=== PATIENT | female | born 1950 | race Caucasian/White ===

== ENCOUNTER → 2017-12-12 00:45 | Outpatient (CLI) | payer BC, SELFPAY ==
--- NOTE | 2017-12-12 08:31 | DI.REPORT_ITS ---
SYMPTOMS/DIAGNOSIS: SCREENING, Z12.31 MAMMOGRAMS: Mammograms were interpreted according to the usual protocol including computer analysis with CAD system, tomosynthesis and C view imaging. Comparison is with prior mammograms. No masses or microcalcifications are seen. There is nothing to suggest malignancy. IMPRESSION: Negative mammogram. Routine screening is recommended. Category 1, breast density B. MQSA ASSESSMENT OF FINDINGS: Negative. Category 1. Patient will receive a letter notifying them of these results. BI-RADS category B. There are scattered areas of fibroglandular density.
== END ==
PROVIDERS: PCP Family Medicine; Visit Provider Family Medicine
DX: Z12.31 Encounter for screening mammogram for malignant neoplasm of breast (principal)
CPT/HCPCS: 77063; 77067

== ENCOUNTER 2018-03-07 15:53 | Outpatient (CLI) | payer BC, MEDICARE, SELFPAY ==
[2018-03-07 16:28] LABS: Abs Immature Grans 0.02 k/cumm (0.0-0.09); Absolute Basophil Count 0.05 k/cumm (0.0-0.2); Absolute Eosinophil Count 0.21 k/cumm (0.0-0.7); Absolute Lymphocyte Count 1.63 k/cumm (1.2-3.4); Absolute Monocyte Count 0.82 k/cumm (0.11-0.7); Absolute Neutrophil Count 4.47 k/cumm (1.2-6.7); Basophils % 0.7; Eosinophils % 2.9; HCT 38.6 % (36.0-46.0); HGB 12.6 g/dL (12.0-15.5); Immature Grans % 0.3; Lymphocytes % 22.6; Mean Corp. HGB Concentration 32.6 g/dL (32.0-36.0); Mean Corpuscular Hemoglobin 28.1 pg (27.0-33.0); Mean Corpuscular Volume 86.2 fL (80-95); Mean Platelet Volume 10.7 fL (8.0-11.0); Monocytes % 11.4; Neutrophils % 62.1; Platelet Count 313 x1000/uL (130-400); RBC 4.48 m/cumm (4.00-5.20); RBC Distribution Width 14.3 % (11.7-14.6)
[2018-03-07 16:40] LABS: Bilirubin Negative (Negative); Blood Negative (Negative); Clarity Clear; Glucose Negative (Negative); Ketones Negative (Negative); Leukocyte Esterase Negative (Negative); Nitrite Negative (Negative); Specific Gravity 1.015 (1.005-1.025); Urobilinogen 0.2 EU/dL (Up TO 0.2)
[2018-03-07 17:42] LABS: ESR 54 MM/HR (0-30)
[2018-03-07 17:53] LABS: ALT 38 U/L (12-78); AST 33 U/L (15-37); Albumin 3.4 g/dL (3.4-5.0); Alkaline Phosphatase 137 U/L (46-116); Anion Gap 11.4 mmol/L (3-11); BUN 22 mg/dL (7-18); Bilirubin, Total 0.3 mg/dL (0.2-1.0); C-Reactive Protein 4.81 mg/dL (0.0-0.3); CO2 26.6 mmol/L (21.0-32.0); CREATININE 0.83 mg/dL (0.55-1.02); Calcium 8.9 mg/dL (8.5-10.1); Chloride 102 mmol/L (98-107); Glucose 99 mg/dL (70-100); Potassium 4.3 mmol/L (3.5-5.1); Sodium 140 mmol/L (136-145); Total Protein 6.9 g/dL (6.4-8.2); Uric Acid 4.6 mg/dL (2.6-6.0)
[2018-03-09 10:37] LABS: Cyclic Citrullinated Peptide <2.5 U/mL (<5.0)
[2018-03-09 11:20] LABS: Rheumatoid Factor 10 IU/mL (<12.5)
[2018-03-09 12:31] LABS: Lyme Ab w Rflx to Lyme Confirm Negative
[2018-03-09 13:44] LABS: ANA Interpretation Negative (NEGAT)
== END 2018-03-07 16:13 ==
PROVIDERS: PCP Family Medicine; Visit Provider Family Medicine
DX: M25.50 Pain in unspecified joint (principal); M13.0 Polyarthritis, unspecified
CPT/HCPCS: 36415; 80053; 85652; 86200; 81003; 84550; 85025; 86038; 86140; 86431; 86618

== ENCOUNTER 2018-03-08 01:10 | Outpatient (CLI) | payer BC, MEDICARE, SELFPAY ==
[2018-03-08] MEDS: Omnipaque 350 MG/ML 100 ML BTL IJ (15:13)
--- NOTE | 2018-03-08 15:14 | DI.CT_ITS ---
SYMPTOMS/DIAGNOSIS: DYSPNEA, R06.00, COUGH, R05, PLEURODYNIA, R07.81, ? PE PE CHEST CT: CT angiography was performed with multi slice acquisition and multi planar and 3D reconstruction. The study was conducted according to the usual protocol with an intravenous administration of 100 cc's of Omnipaque 350. Suboptimal opacification of the pulmonary arteries is demonstrated. There is no evidence of gross central pulmonary embolic disease. There is no evidence of a pulmonary infiltrate or pleural effusion. The heart is not enlarged. There is no evidence of an aortic aneurysm. SUMMARY: Technically suboptimal examination revealing no evidence of gross central pulmonary embolic disease.
== END 2018-03-08 01:30 ==
PROVIDERS: PCP Family Medicine; Visit Provider Family Medicine
DX: R06.00 Dyspnea, unspecified (principal); R05 Cough; R07.81 Pleurodynia
CPT/HCPCS: 71275; J3490

== ENCOUNTER 2018-03-27 00:19 | Outpatient (CLI) | payer BC, MEDICARE, SELFPAY ==
--- NOTE | 2018-03-27 08:30 | ETT_ITS ---
*[facility]* *[facility]* [address] [place] [address] Stress Electrocardiography Rodger protocol Date of study: 03/27/2018 *PATIENT PRESENTATION* Height: 177.8cm (70in) Blood Pressure: Weight: 90kg (198lb) BSA: 2.13m^2 Ordering physician: Gwendolyn Diaz Impressions: Normal study after maximal exercise. Summary: 1. Stress ECG conclusions: The stress ECG is negative. Power treadmill score: 6. This score predicts a low risk of cardiac events. 2. Stress: The target heart rate was achieved. The heart rate response to stress is normal. There is a normal resting blood pressure with an appropriate response to stress. The patient experienced no chest pain during stress. Exercise capacity is normal for age. Indication: R07.9. History: REASON FOR TESTING: RECENT CHEST PAIN WHEN LAYING DOWN SEVERAL MONTHS AGE. PAIN RECURRED APPROX 3 WEEKS AGO, WITH ASSOCIATED LIGTHEADEDNESS. RESOLVED SEVERAL HOURS LATER WITH REST. PMH: VIT D DEFICIENCY, VAGINAL ATROPHY, SYNCOPE, RIGHT SHOULDER PAIN, PSVT, CONCUSSION, CERVICAL NECK PAIN, ALLERGIC RHINITIS, ADENOMATOUS POLYP OF COLON, POLYARTHRITIS OF HAND, BURSITIS OF HIP, NASAL POLYPS, GERD. FAMILY HX: FATHER- CVA,KS, HYPERTENSION, HYPERLIPIDEMIA. BROTHER- CAD WITH 2 STENTS. SMOKING: NEVER SMOKER. EXCERCISE: HUNTS, BUT NO REGULAR EXCERCISE. Risk factors: Family history of coronary artery disease. Dyslipidemia. Cholesterol: 261mg/dl. HDL: 74mg/dl. LDL: 163mg/dl. Triglycerides: 137mg/dl. ALLERGIES: ETHINYL ESTRADIOL, LEVONORGRESTREL, ESTROGENS, CONJUGATED. MEDICATIONS: OMEPRAZOLE 40 MG DAILY, MULTIVITAMIN 1 DAILY, CHOLECALCIFEROL 2000 UNITS DAILY, ASPIRIN 81 MG DAILY, GLUCOSAMIN/CHONDROITIN 3 DAILY. Protocol: Rodger protocol. Baseline ECG: LAST EKG 03/07/18- SINUS RHYTHM, HR 66. TODAY'S EKG- SINUS RHYTHM, HR 74. Stress protocol: + +---+ +---+ !Stage !HR !BP (mmHg) !Sat! + +---+ +---+ !Baseline supine !74 !132/78 (96) !---! + +---+ +---+ !Baseline standing !75 !126/74 (91) !97%! + +---+ +---+ !Stage I; 1.7mph, 10degrees; 3 min !125!162/88 (113) !96%! + +---+ +---+ !Stage II; 2.5mph, 12degrees; 3 min!136!202/100 (134)!95%! + +---+ +---+ !Recovery; 1 min !120!196/72 (113) !---! + +---+ +---+ !Recovery; 3 min !102!164/79 (107) !---! + +---+ +---+ !Recovery; 6 min !94 !142/70 (94) !---! + +---+ +---+ !Recovery; 9 min !92 !130/68 (89) !---! + +---+ +---+ * Stress results: The target heart rate was achieved. The heart rate response to stress is normal. There is a normal resting blood pressure with an appropriate response to stress. The rate-pressure product for the peak heart rate and blood pressure was 60163fn Hg/min. The patient experienced no chest pain during stress. Exercise capacity is normal for age. Stress ECG: EXCERCISE TESTING ENDED IN 6 MINS, 5 SECS DUE TO FATIGUE. MAX HR WAS 140, 92% OF TARGET. HYPERTENSIVE BLOOD PRESSURE RESPONSE. METS: 7.15 ECTOPY: NONE SEEN. ANGINA: NO REPORTED CHEST PAIN OR PRESSURE. ISCHEMIA: NO ISCHEMIC CHANGES NOTED. FUNCTIONAL CAPACITY: AVERAGE CAPACITY. The stress ECG is negative. Power treadmill score: 6. This score predicts a low risk of cardiac events. Study data: Zeb Cast MD supervised and was readily available during the procedure. This study was interpreted by [facility]. Study status: Routine. Consent: The risks, benefits, and alternatives to the procedure were explained to the patient and informed consent was obtained. Procedure: Initial setup. A baseline ECG was recorded. Surface ECG leads and manual cuff blood pressure measurements were monitored. Heart sounds: Normal. Lung sounds: Normal. Treadmill exercise testing was performed using the Rodger protocol. Study completion: The patient tolerated the procedure well and was discharged from the lab. Discharge: The patient left the laboratory in stable condition. Birthdate: Patient birthdate: 1950. Sex: Gender: female. Study date: Study date: 03/27/2018. Study time: 08:30 AM. Electronically signed by Zeb Cast MD 03/27/2018 09:55
--- NOTE | 2018-03-27 09:15 | DI.RAD_ITS ---
SYMPTOM/DIAGNOSIS: HAND SWELLING, POLYARTHRITIS, M13.0 BILATERAL HANDS AND WRISTS: 03/27 Two views of right and left hand and wrist were obtained. There is fairly symmetrical cartilaginous joint space narrowing of the DIP joints and PIP joints bilaterally. Most marked changes are at the DIP joints and there is irregular cartilage loss particularly at the DIP joint of the index finger on the right. The bones appear slightly demineralized. The joints of the carpus appear fairly well preserved bilaterally with perhaps minimal degenerative changes and essentially normal alignment. The MCP joints appear relatively spared. CONCLUSION: Findings consistent with osteoarthritis pattern with narrowing of joint spaces and mild hypertrophic spurring of the bones particularly at the DIP joints of index and middle fingers bilaterally.
== END 2018-03-27 00:39 ==
PROVIDERS: PCP Family Medicine; Visit Provider Family Medicine
DX: M19.041 Primary osteoarthritis, right hand (principal); M19.042 Primary osteoarthritis, left hand; M13.0 Polyarthritis, unspecified; R22.31 Localized swelling, mass and lump, right upper limb; R22.32 Localized swelling, mass and lump, left upper limb; R07.9 Chest pain, unspecified; R42 Dizziness and giddiness; Z82.49 Family history of ischemic heart disease and other diseases of the circulatory system
CPT/HCPCS: 73120; 93017

== ENCOUNTER 2018-07-04 11:33 | Outpatient (CLI) | payer BC, SELFPAY ==
[2018-07-04 12:20] LABS: Abs Immature Grans 0.02 k/cumm (0.0-0.09); Absolute Basophil Count 0.02 k/cumm (0.0-0.2); Absolute Eosinophil Count 0.09 k/cumm (0.0-0.7); Absolute Lymphocyte Count 1.68 k/cumm (1.2-3.4); Absolute Monocyte Count 1.03 k/cumm (0.11-0.7); Absolute Neutrophil Count 7.93 k/cumm (1.2-6.7); Basophils % 0.2; Eosinophils % 0.8; HCT 41.1 % (36.0-46.0); HGB 13.2 g/dL (12.0-15.5); Immature Grans % 0.2; Lymphocytes % 15.6; Mean Corp. HGB Concentration 32.1 g/dL (32.0-36.0); Mean Corpuscular Volume 90.3 fL (80-95); Mean Platelet Volume 11.5 fL (8.0-11.0); Monocytes % 9.6; Neutrophils % 73.6; Platelet Count 223 x1000/uL (130-400); RBC 4.55 m/cumm (4.00-5.20); RBC Distribution Width 14.9 % (11.7-14.6); White Blood Cell Count 10.77 k/cumm (4.4-10.8)
[2018-07-04 12:32] LABS: Bilirubin Negative (Negative); Blood Moderate (Negative); Clarity Clear; Glucose Negative (Negative); Ketones Negative (Negative); Leukocyte Esterase Small (Negative); Nitrite Positive (Negative); Specific Gravity 1.015 (1.005-1.025); Urobilinogen 0.2 EU/dL (Up TO 0.2); pH 7.5 (5-8)
[2018-07-04 12:51] LABS: Epithelial Cells Few HPF (Negative); WBC >50 HPF (0-5)
[2018-07-04 12:52] LABS: Bacteria Many HPF (Negative); C & S Indicated? Yes
[2018-07-04 13:10] LABS: ALT 19 U/L (12-78); AST 21 U/L (15-37); Albumin 3.7 g/dL (3.4-5.0); Alkaline Phosphatase 111 U/L (46-116); BUN 15 mg/dL (7-18); Bilirubin, Total 0.6 mg/dL (0.2-1.0); CREATININE 0.94 mg/dL (0.55-1.02); Calcium 8.8 mg/dL (8.5-10.1); Chloride 105 mmol/L (98-107); Estimated GFR 59.22 (mL/min/1.73m2); Glucose 95 mg/dL (70-100); Potassium 4.3 mmol/L (3.5-5.1); Sodium 141 mmol/L (136-145); Total Protein 7.1 g/dL (6.4-8.2); Uric Acid 3.9 mg/dL (2.6-6.0)
[2018-07-05 18:58] LABS: Centromere Ab, IgG <0.2 U (<1.0 (Neg)); Scl 70 Antibodies, IgG <0.2 U
[2018-07-06 15:20] LABS: HLA-B27 Result Negative
== END 2018-07-04 11:53 ==
PROVIDERS: Internal Medicine; PCP Family Medicine; Visit Provider Family Medicine
DX: M35.3 Polymyalgia rheumatica (principal); M46.90 Unspecified inflammatory spondylopathy, site unspecified; M54.5 Low back pain; G89.29 Other chronic pain; R30.0 Dysuria
CPT/HCPCS: 36415; 80053; 86812; 87077; 81003; 81015; 83520; 84550; 85025; 86235; 87086; 87186

== ENCOUNTER 2018-07-04 13:01 | Outpatient (CLI) | payer BC, SELFPAY ==
--- NOTE | 2018-07-04 12:45 | DI.RAD_ITS ---
SYMPTOMS/DIAGNOSIS: INFLAMMATORY ARTHROPATHY WITH PAIN LOWER BACK, M35.3, M46.90, M54.5, G89.29 LUMBAR SPINE: AP, lateral and bilateral oblique views of the lumbar spine were obtained. There is normal alignment. No spondylolysis or spondylolisthesis is seen. There is disc space narrowing at L 5 - S 1. The disc heights are otherwise well maintained. There are degenerative changes of the facet joints seen in the lower lumbar spine. No acute fracture or subluxation is seen. Calcification of the abdominal aorta is noted. There are surgical clips in the right upper quadrant of the abdomen. IMPRESSION: Mild degenerative changes seen in the lumbar spine. No acute abnormality. SACROILIAC JOINTS: Multiple views were obtained. No ankylosis of the sacroiliac joints is noted. No erosions are seen. There do appear to be mild degenerative changes seen in the joint. The bones appear normally mineralized. Vascular calcifications are seen. IMPRESSION: No evidence of sacroiliac joint ankylosis or erosions.
== END 2018-07-04 13:21 ==
PROVIDERS: PCP Family Medicine; Visit Provider Internal Medicine
DX: M35.3 Polymyalgia rheumatica (principal); M46.90 Unspecified inflammatory spondylopathy, site unspecified; M54.5 Low back pain; M51.37 Other intervertebral disc degeneration, lumbosacral region; M53.3 Sacrococcygeal disorders, not elsewhere classified
CPT/HCPCS: 72110; 72202

== ENCOUNTER 2020-03-05 22:31 | Outpatient (REF) | payer MEDICARE, SELFPAY ==
[2020-03-05 22:51] LABS: Abs Immature Grans 0.03 10^3/uL (0.0-0.06); Absolute Basophil Count 0.06 10^3/uL (0.0-0.2); Absolute Eosinophil Count 0.21 10^3/uL (0.0-0.7); Absolute Lymphocyte Count 1.97 10^3/uL (1.2-3.4); Absolute Monocyte Count 0.77 10^3/uL (0.1-0.8); Absolute Neutrophil Count 6.11 10^3/uL (1.2-6.7); Basophils % 0.7; Eosinophils % 2.3; HCT 43.3 % (36.0-46.0); HGB 14.2 g/dL (11.2-15.7); Immature Grans % 0.3; Lymphocytes % 21.5; MCH 29.6 pg (27.0-33.0); MCHC 32.8 % (32.0-36.0); MCV 90.4 fL (80-95); MPV 12.2 fL (8.0-11.0); Monocytes % 8.4; Neutrophils % 66.8; Nucleated RBC 0 %; Platelet Count 276 10^3/uL (130-400); RBC 4.79 10^6/uL (3.93-5.22); RDW 13.5 % (11.7-14.6); RDW-SD 44.9 fL; WBC 9.15 10^3/uL (4.4-10.8)
[2020-03-05 22:53] LABS: ALT 60 U/L (14-59); AST 48 U/L (15-37); Albumin 3.9 g/dL (3.4-5.0); Alkaline Phosphatase 117 U/L (46-116); Anion Gap 10.1 mmol/L (3-11); BUN 31 mg/dL (7-18); Bilirubin, Total 0.4 mg/dL (0.2-1.0); CO2 24.9 mmol/L (21.0-32.0); CREATININE 0.88 mg/dL (0.55-1.02); Calcium 9.9 mg/dL (8.5-10.1); Chloride 105 mmol/L (98-107); Glucose 94 mg/dL (74-106); Potassium 4.3 mmol/L (3.5-5.1); Sodium 140 mmol/L (136-145); Total Protein 7.1 g/dL (6.4-8.2)
== END 2020-03-05 22:51 ==
LOC: LBN 22:31
PROVIDERS: PCP Family Medicine; Visit Provider Physician Assistant
DX: D12.6 Benign neoplasm of colon, unspecified (principal); I10 Essential (primary) hypertension
CPT/HCPCS: 80053; 85025

== ENCOUNTER 2020-03-06 13:27 | Outpatient (CLI) | payer MEDICARE, SELFPAY ==
--- NOTE | 2020-03-06 08:15 | DI.RAD_ITS ---
EXAM: XR LUMBAR SPINE COMPLETE CLINICAL HISTORY: back pain x 10 days w/ radiation Rt. hx discectomy, M54.5 TECHNIQUE: COMPARISON: No exams were available for comparison FINDINGS: Five views were obtained. There is laminectomy at L5 S. there is narrowing of the intervertebral dis c spaces at L5-S1 and L4-5. There are prominent hypertrophic changes of the facet joints of the lowe r lumbar spine and there are prominent endplate hypertrophic changes at L5-S1. There is no evidence of spondylolysis or spondylolisthesis. IMPRESSION: Prior laminectomy at L5-S1. Degenerative changes of the lower lumbar spine. RADIATION DOSE DELIVERED: Total DLP
== END 2020-03-06 13:47 ==
PROVIDERS: PCP Family Medicine; Visit Provider Physician Assistant
DX: M47.816 Spondylosis without myelopathy or radiculopathy, lumbar region (principal); M54.5 Low back pain
CPT/HCPCS: 72110

== ENCOUNTER 2020-03-08 11:00 | Outpatient (REF) | payer MEDICARE, SELFPAY ==
[2020-03-08 20:52] LABS: ALT 40 U/L (14-59); AST 25 U/L (15-37); Albumin 3.9 g/dL (3.4-5.0); Alkaline Phosphatase 137 U/L (46-116); Anion Gap 11.7 mmol/L (3-11); BUN 24 mg/dL (7-18); Bilirubin, Total 0.4 mg/dL (0.2-1.0); CO2 23.3 mmol/L (21.0-32.0); Calcium 9.3 mg/dL (8.5-10.1); Chloride 103 mmol/L (98-107); Glucose 86 mg/dL (74-106); Potassium 4.5 mmol/L (3.5-5.1); Sodium 138 mmol/L (136-145)
[2020-03-08 20:58] LABS: GGT 62 U/L (5-55)
[2020-03-12 16:13] LABS: Hepatitis B surface Ag Negative (Negative)
[2020-03-12 16:14] LABS: Hepatitis A Antibody IgM Negative (Negative); Hepatitis B Core Antibody Negative (Negative); Hepatitis C Ab w Rflx HCV PCR Negative (Negative)
== END 2020-03-08 11:20 ==
LOC: LBN 11:00
PROVIDERS: PCP Family Medicine; Visit Provider Family Medicine
DX: R79.89 Other specified abnormal findings of blood chemistry (principal); I10 Essential (primary) hypertension
CPT/HCPCS: 80053; 86704; 86709; 86803; 87340; 82977

== ENCOUNTER 2021-08-10 04:23 | Outpatient (CLI) | payer MEDICARE, SELFPAY ==
[2021-08-10 13:48] LABS: HCT 42.2 % (36.0-46.0); HGB 13.8 g/dL (11.2-15.7); MCH 29.3 pg (27.0-33.0); MCHC 32.7 % (32.0-36.0); MCV 89.6 fL (80-95); MPV 11.1 fL (8.0-11.0); Platelet Count 288 10^3/uL (130-400); RBC 4.71 10^6/uL (3.93-5.22); RDW 13.5 % (11.7-14.6); RDW-SD 44.7 fL; WBC 8.71 10^3/uL (4.4-10.8)
[2021-08-10 13:58] LABS: ESR 37 mm/hr (0-30)
[2021-08-10 14:54] LABS: ALT 30 U/L (14-59); AST 23 U/L (15-37); Albumin 3.9 g/dL (3.4-5.0); Alkaline Phosphatase 103 U/L (46-116); Anion Gap 11.6 mmol/L (3-11); BUN 24 mg/dL (7-18); CO2 27.4 mmol/L (21.0-32.0); CREATININE 0.9 mg/dL (0.55-1.02); Calcium 9.6 mg/dL (8.5-10.1); Calculated LDL 183 mg/dL (<100); Chloride 103 mmol/L (98-107); Cholesterol 300 mg/dL (<200); Glucose 113 mg/dL (74-106); HDL Cholesterol 78 mg/dL (40-60); Potassium 4.3 mmol/L (3.5-5.1); Sodium 142 mmol/L (136-145); TSH (W/Ref FT4) 3.38 uIU/mL (0.36-3.74); Total Protein 7.2 g/dL (6.4-8.2); Triglyceride 199 mg/dL (<150)
[2021-08-10 15:12] LABS: Bilirubin, Total 0.5 mg/dL (0.2-1.0)
== END 2021-08-10 04:24 | disposition home or self-care (01) ==
LOC: LBO 04:23
PROVIDERS: PCP Family Medicine; Visit Provider Family Medicine
DX: I10 Essential (primary) hypertension (principal); I47.1 Supraventricular tachycardia; R52 Pain, unspecified; R79.89 Other specified abnormal findings of blood chemistry; D12.6 Benign neoplasm of colon, unspecified; L40.50 Arthropathic psoriasis, unspecified
CPT/HCPCS: 36415; 80053; 80061; 85027; 85652; 84443

== ENCOUNTER 2021-09-04 00:26 | Outpatient (CLI) | payer MEDICARE, SELFPAY ==
--- NOTE | 2021-09-04 14:52 | DI.DEXA_ITS ---
Exam(s) XR DEXA BONE DENSITY W/WO GERRI EXAM: XR DEXA BONE DENSITY W/WO GERRI CLINICAL HISTORY: osteoporosis,M81.0 TECHNIQUE: [employer] C densitometer COMPARISON: CR XR LUMBAR SPINE COMPLETE from 03/06/2020 FINDINGS: Lateral view of the thoracic and lumbar spine shows no evidence of compression fractures. Bone mineral density measurements of the lumbar spine correspond to a total T-score of 0.6, in the no rmal range. Bone mineral density measurements of the left hip correspond to a total T-score of -1.3 . The femora l neck T-score is -1.8, consistent with osteopenia.. The left forearm bone mineral density measurements correspond to a T-score of the distal 3rd of -1.2, in the osteopenic range. . IMPRESSION: Normal bone mineral density of the lumbar spine. Osteopenia of the left hip and left forearm.
--- NOTE | 2021-09-04 15:17 | DI.MAMMO_ITS ---
Exam(s) MAMMO SCREENING EXAM: MAMMO SCREENING CLINICAL HISTORY: screening,Z12.39 TECHNIQUE: Mammograms were interpreted according to the usual protocol including computer analysis w [employer] CAD system, tomosynthesis and C-view imaging. COMPARISON: 2014 through 2017 FINDINGS: The breasts are composed of scattered fibroglandular densities, Breast Density category B. No suspicious masses or suspicious microcalcifications are seen. No skin thickening or abnormal axillary lymph nodes are seen. There has been no significant change from prior exams. IMPRESSION: BI-RADS Category 1, Negative mammogram Yearly screening mammography is recommended. Breast Density - Category B, scattered fibroglandular densities. A negative radiographic report should not delay biopsy if a dominant or clinically suspicious mass is present. Up to ten percent of cancers are not identified on mammography. A negative report may reinforce clinical impression. Adenosis and dense breasts may obscure an underlying neoplasm. False positive reports average 6 to 10%. Patient will receive a letter notifying them of these results.
== END 2021-09-04 00:46 ==
PROVIDERS: PCP Family Medicine; Visit Provider Family Medicine
DX: Z12.31 Encounter for screening mammogram for malignant neoplasm of breast (principal); M85.88 Other specified disorders of bone density and structure, other site
CPT/HCPCS: 77063; 77067; 77080

== ENCOUNTER → 2022-01-05 00:51 | Outpatient (CLI) | payer MEDICARE, SELFPAY ==
--- NOTE | 2022-01-05 07:31 | DI.RAD_ITS ---
Exam(s) XR HIP PELVIS ADULT BL EXAM: XR HIP PELVIS ADULT BL CLINICAL HISTORY: b/l hip pain, M25.551, M25.552 TECHNIQUE: COMPARISON: CR XR sacroiliac joints from 07/04/2018 FINDINGS: Four views were obtained. There is marked loss of cartilaginous joint spaces of both hips. There ar e prominent marginal osteophytes of the acetabulum bilaterally and there are marginal osteophytes of femoral heads bilaterally as well. There are moderate degenerative changes of the SI joints. IMPRESSION: Moderate to severe DJD both hips. RADIATION DOSE DELIVERED: Total DLP
== END ==
PROVIDERS: PCP Family Medicine; Visit Provider Family Medicine
DX: M16.0 Bilateral primary osteoarthritis of hip (principal)
CPT/HCPCS: 73521

== ENCOUNTER → 2022-03-11 10:29 | Outpatient (BNVA) | payer MEDICARE, SELFPAY | PROVIDERS: PCP Family Medicine; Referring Provider Family Medicine; Visit Provider Student in an Organized Health Care Education/Training Program | DX: M16.11 Unilateral primary osteoarthritis, right hip (principal); M16.12 Unilateral primary osteoarthritis, left hip | CPT/HCPCS: 99203 ==

== ENCOUNTER → 2022-03-25 02:01 | Outpatient (CLI) | payer MEDICARE, SELFPAY ==
--- NOTE | 2022-03-25 15:29 | OPPNE_ITS ---
Date of service: 03/25/22 Time of Service: 15:29 Procedure Note Procedure: Bilateral Hip Injection with Fluoroscopic Guidance Surgeon/Proceduralist/Physician: Eliu Obando Procedure Diagnosis: Bilateral Hip Osteoarthritis Procedure Indications: Adina has had persistent pain of the BILATERAL hip and groin. Noninvasive measures have been tried. To serve as both diagnostic and therapeutic, an injec tion under fluoroscopy was recommended. I had discussed the risks of the procedure and the patient elected to proceed. Procedure Description: Adina was greeted in the flouroscopy room. The consent was reviewed with the patient and signed. The patient was then placed in the supine position on the fluoroscopy table. The RIGHT hip was then prepped with Chloraprep. The anterolateral injection starting point was identiifed by bony landmarks and fluoroscopy. The skin and soft tissue in the tract of the injection was anesthetized with 1% Lidocaine. A spinal needle was then inserted deep into the hip joint at the level of the lateral femoral neck under fluoroscopic guidance. A small amount of Omnipaque solution was injected to confirm intraarticular placement. Once confirmed, the hip was injected with 5cc of 0.5% Bupivicaine and 80mg of Depo-Medrol. A bandaid was placed on the injection site. The LEFT hip was then prepped with Chloraprep. The anterolateral injection starting point was identiifed by bony landmarks and fluoroscopy. The skin and soft tissue in the tract of the injection was anesthetized with 1% Lidocaine. A spinal needle was then inserted deep into the hip joint at the level of the lateral femoral neck under fluoroscopic guidance. A small amount of Omnipaque solution was injected to confirm intraarticular placement. Once confirmed, the hip was injected with 5cc of 0.5% Bupivicaine and 80mg of Depo-Medrol. A bandaid was placed on the injection site. The patient tolerated the procedure well.
--- NOTE | 2022-03-25 15:32 | DI.RAD_ITS ---
Exam(s) RF JOINT INJECTION FLUORO GUID EXAM: RF JOINT INJECTION FLUORO GUID CLINICAL HISTORY: L HIP INJ UNDER FLUORO,LT HIP PAIN, M25.552 TECHNIQUE: 2D and realtime digital imaging was performed. COMPARISON: No exams were available for comparison FINDINGS: Fluoroscopy was utilized by Dr. Obando during reported left hip joint injection. Hard copy show le ft hip joint injection. IMPRESSION: RADIATION DOSE DELIVERED: boy Delgado=1.16 mGy Total DLP
--- NOTE | 2022-03-25 15:38 | DI.RAD_ITS ---
Exam(s) RF JOINT INJECTION FLUORO GUID EXAM: RF JOINT INJECTION FLUORO GUID CLINICAL HISTORY: R HIP INJ UNDER FLUORO, RT HIP PAIN, M25.551 TECHNIQUE: 2D and realtime digital imaging was performed. COMPARISON: No exams were available for comparison FINDINGS: Fluoroscopy is utilized by Dr. Obando during right hip injection. Hard copies show injection in or adjacent to the right hip joint. IMPRESSION: RADIATION DOSE DELIVERED: boy Delgado=0.78 mGy Total DLP
[2022-03-25] MEDS: Bupivacaine 0.5% Pres-Free 10 ML VIAL 5 ML IJ ×2 (15:42→15:49)
[2022-03-25] MEDS: methylPREDNISolone ACETATE 80 MG/ML VIAL IM ×2 (15:43→15:50)
== END ==
PROVIDERS: PCP Family Medicine; Visit Provider Student in an Organized Health Care Education/Training Program
DX: M25.552 Pain in left hip (principal); M25.551 Pain in right hip
CPT/HCPCS: 20610; 77002; J1040

== ENCOUNTER 2022-07-22 02:41 | Outpatient (CLI) | payer MEDICARE, SELFPAY ==
[2022-07-22 15:24] LABS: HCT 42.2 % (36.0-46.0); HGB 13.7 g/dL (11.2-15.7); MCHC 32.5 % (32.0-36.0); MCV 89 fL (80-95); MPV 10.9 fL (8.0-11.0); Platelet Count 273 10^3/uL (130-400); RBC 4.72 10^6/uL (3.93-5.22); RDW 12.5 % (11.7-14.6); RDW-SD 41.5 fL; WBC 8.25 10^3/uL (4.4-10.8)
[2022-07-22 15:55] LABS: Anion Gap 10.7 mmol/L (3-11); BUN 35 mg/dL (7-18); CO2 24.3 mmol/L (21.0-32.0); CREATININE 1.3 mg/dL (0.55-1.02); Calcium 9.6 mg/dL (8.5-10.1); Chloride 101 mmol/L (98-107); Estimated GFR 43.69 (mL/min/1.73m2); Glucose 102 mg/dL (74-106); Sodium 136 mmol/L (136-145)
== END 2022-07-22 02:42 | disposition home or self-care (01) ==
LOC: LBO 02:41
PROVIDERS: PCP Family Medicine; Visit Provider Student in an Organized Health Care Education/Training Program
DX: M25.551 Pain in right hip (principal); M25.552 Pain in left hip; M16.0 Bilateral primary osteoarthritis of hip; Z01.818 Encounter for other preprocedural examination; Z01.812 Encounter for preprocedural laboratory examination
CPT/HCPCS: 36415; 80048; 85027; 86850; 86900; 86901

== ENCOUNTER 2022-07-22 14:36 | Outpatient (CLI) | payer MEDICARE, SELFPAY ==
--- NOTE | 2022-07-22 14:15 | DI.RAD_ITS ---
Exam(s) XR PELVIS AP EXAM: XR PELVIS AP CLINICAL HISTORY: B/L NIDIA planning. TECHNIQUE: 2D digital imaging was performed. Single AP view with template ball. COMPARISON: CR XR HIP PELVIS ADULT BL from 01/05/2022 FINDINGS: BONES: No acute fracture is present. No bony destructive lesion is seen. JOINTS: No dislocation present. Severe bilateral hip joint space narrowing, right greater than left. Findings appear to have worsened compared with prior. There is obliteration of both superior hip j oint spaces. There is mild flattening of the right femoral head. There is prominent spurring at bot h acetabula. SOFT TISSUE: Normal. IMPRESSION: Severe degenerative changes of both hips, right greater than left. DATA REPOSITORY: RADIATION DOSE DELIVERED:
== END 2022-07-22 14:37 | disposition home or self-care (01) ==
LOC: DIORS 14:36
PROVIDERS: PCP Family Medicine; Referring Provider Family Medicine; Visit Provider Physician Assistant
DX: M16.0 Bilateral primary osteoarthritis of hip (principal); Z01.818 Encounter for other preprocedural examination
CPT/HCPCS: 72170

== ENCOUNTER 2022-08-04 16:39 | Inpatient (IN) | payer MEDICARE, SELFPAY ==
[2022-08-04] VITALS (23 sets, daily range): BP systolic 77–147; BP diastolic 35–93; PULSE 55–80; RESP 14–24; TEMP 36–37.4; O2SAT 90–100; BMI 30.8
[2022-08-04 06:20] LABS: Source Nasal/Nares
[2022-08-04] MEDS: Acetaminophen 500 MG TAB 1000 MG PO ×3 (06:40→19:05)
[2022-08-04] MEDS: Celecoxib 200 MG CAP 400 MG PO (06:41)
[2022-08-04 06:52] LABS: COVID-19 PCR Negative (Negative)
[2022-08-04] MEDS: Lactated Ringers 1,000 ML 80 ML IV ×3 (07:00→19:04)
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
[2022-08-04] MEDS: ceFAZolin 2 GM/50 ML BAG IVPB (07:27)
--- NOTE | 2022-08-04 08:45 | DI.RAD_ITS ---
Exam(s) XR HIP RT IN OR EXAM: XR HIP RT IN OR CLINICAL HISTORY: total hip TECHNIQUE: 2D and realtime digital imaging was performed. CONTRAST MATERIAL: Refer to procedure report. COMPARISON: CR XR PELVIS AP from 07/22/2022 FINDINGS: Fluoroscopy was provided for Dr. Obando during the performance of a right hip arthroplasty. Antoinette camacho refer to the procedure report for complete details. Ka,r=5.4 mGy IMPRESSION: RADIATION DOSE DELIVERED:
--- NOTE | 2022-08-04 10:12 | DI.RAD_ITS ---
Exam(s) XR HIP LT IN OR EXAM: XR HIP LT IN OR CLINICAL HISTORY: total hip TECHNIQUE: 2D and realtime digital imaging was performed. CONTRAST MATERIAL: Refer to procedure report. COMPARISON: No exams were available for comparison FINDINGS: Fluoroscopy was provided for Dr. Obando during the performance of a left hip arthroplasty. Please refer to the procedure report for complete details. Ka,r=4.9 mGy IMPRESSION: RADIATION DOSE DELIVERED:
--- NOTE | 2022-08-04 10:31 | ROE_ITS ---
Date of service: 08/04/22 Time of Service: 10:31 Operative Note Operative Note DATE OF PROCEDURE: 12/05/19 PRE-OP DIAGNOSIS: Bilateral Hip Osteoarthritis POST-OP DIAGNOSIS: same PROCEDURE: Bilateral Anterior Total Hip Arthroplasty with Intraoperative Navigation SURGEON: Eliu Obando THROUGH FREIGHT ENGINEER: Cuco Lacey ANESTHESIA TYPE: Spinal Refer to Anesthesia Record ESTIMATED BLOOD LOSS: 400 PATHOLOGY: none sent COMPLICATIONS: None Patient was transported to: PACU Patient's condition: stable Implants: RIGHT: 1. Depuy Rock[place] Acetabular Component, 54mm 2. Depuy Acetabular Liner, [id number] 3. Depuy Corail Standard Short Neck Femoral Stem, Size 12 4. Depuy Altrx Ceramic Femoral Head, Size 36+8.5mm LEFT: 1. Depuy [place] Acetabular Component, 54mm 2. Depuy Acetabular Liner, [id number] 3. Depuy Corail Standard Collared Femoral Stem, Size 12 4. Depuy Altrx Ceramic Femoral Head, Size 36+5mm Indications: I have seen Adina in clinic for symptoms of hip arthritis, confirmed with radiographic findings. She has exhausted nonoperative methods and was having significant limitations in daily function and desired better function and less pain. I discussed the technical details of a hip replacement. I explained the risks of the procedure to include, but not limited to, bleeding, infection, pain, stiffness, fracture, damage to nerves and vessels, damage to muscles and tendons, loosening, instability, leg length inequality, need for repeat procedure, blood clot and cardiopulmonary demise. Despite these risks, Adina elected to proceed. Findings: There was significant signs of arthritis throughout both hips involving acetabulum and femoral head. There was a large dysplastic labrum on the right hip and notable synovitis on the left. Procedure Description: Adina was greeted in the preoperative holding area where the correct side was identified and marked. The consent was reviewed with the patient and signed. The history and physical was updated. All questions were answered. She was taken back to the operating room. A spinal anesthestic was then administered. The patient was placed into the supine position on the HANA table. Both feet were wrapped with Webrill cotton wrap along with Coban. RIGHT Side The feet were placed in specialized boots for the HANA table, well seated within the boot and secured. SCDs were applied. The patient was then slid down onto a peroneal post. A preoperative AP hip was obtained to serve as a reference for determining leg lengths. Prophylactic antibiotics in the form of Cefazolin were administered. 1g of Tranxemic Acid was given intravenously within 30 minutes of incision. The right leg was then prepped with Chloraprep and draped in a standard fashion. A second prep with Chloraprep was performed prior to placement of a shower-curtain type drape with Iodine impregnated skin protection. A timeout to confirm correct identity, side and site, procedure, allergies, anesthesia, and medical concerns was performed. An obliquely oriented incision was made starting lateral to the ASIS and running distal over the Tensor Fascia Tamara (TFL) muscle belly toward the fibular head, approximately 10cm. The skin and soft tissue was dissected sharply, through Shaheen?s fascia, and to the fascia of the TFL. With the fascia and superior border of the IT band identified, the fascia was incised with a new knife just above any perforators from the IT band. The TFL muscle belly was bluntly dissected away from the fascia and moved laterally. The fat between TFL and rectus was identified to ensure the dissection was not within the TFL. Blunt dissection created space between abductors and the capsule and retractor was placed over the lateral femoral neck. The fibers of the rectus femoris tendon were identified and these were freed from the anterior capsule. A second cobra retractor was placed around the medial femoral neck. The TFL was further retracted laterally to show the deep fascia. Careful dissection through this layer identified three main crossing vessels of the lateral femoral circumflex. These were cauterized in multiple locations and then cut without any noticeable bleeding. The TFL was further released bluntly from the deep fascia to expose anterior hip capsule and fat The Kahlil orthopaedic retractor was then placed beneath the TFL and against sartorius and medial soft tissues to protect and retract the soft tissues. A T-capsulotomy was then performed starting at the superior lateral acetabulum and moving distally to the intertrochanteric ridge. These capsular flaps were tagged with a No. 1 Ethibond and elevated from within. The capsular flaps were released to the shoulder of the lateral neck and to the lesser trochanter to give excellent visualization of the proximal femur. A neck osteotomy was performed using an oscillating saw based on preoperative templates. This cut started in the shoulder and of the lateral neck and exited medially. The saw was at all times directed medially to avoid injury to the greater trochanter. Gentle traction was applied to the leg and the osteotomy opened. The femoral head was removed with a corkscrew, making sure to protect the TFL on its exit. This was measured on the back table to determing the starting reamer size. Portions of the rectus obscuring visualization were minimally elevated off the superior acetabulum. An anterior retractor was placed over the anterior wall between capsule and labrum and attached to the Gripper retraction system. A posterior retractor was placed similarly. This provided excellent visualization. THe labrum was very large and torn. The anterior and posterior wall were dimunitive. The contents of the cotyloid fossa were removed with electrocautery and the labrum was removed with a knife. There was significant chondromalacia of the superior acetabulum. Acetabular reaming began with a 48mm reamer. This first reaming was directed anterior to posterior and medial to get down to the true floor. This was inspected and reamed until the true floor was reached. The anterior retractor was then released and entry and exit was provided by traction on the capsular flaps. I then reamed sequentially up to a 54mm reamer where good fit was obtained. The larger reamers were oriented based on anatomical reference of the anterior and lateral kimble to ensure proper abduction and anteversion. Positioning and size was confirmed with the fluoroscopy. A 54mm Depuy [place] acetabular component was selected. The acetabulum was reamed around the periphery with the selected acetabular size to prevent a rim fit. The deep tissues were irrigated. The acetabular component was then impacted in a position of about 40-45 degrees of abduction and 15-20 degrees of anteversion, using the patient?s anatomy as the ultimate landmark. Fluoroscopy was used to confirm this. There was excellent fruit harvester of the acetabular component and the inserting handle was removed. A primary acetabular screw was placed into the ilium by drilling through one of the holes in the acetabular component. This was measured and an approrpriately sized screw was placed with excellent purchase. It was checked not to be proud. The acetabular liner, Depuy [id number] polyethylene liner, was inserted and lined up with the tines of the acetabular component. There was no soft tissue interposition. The liner was then impacted into position and confirmed to be well-seated. A portion of the wilian-articular cocktail was then injected around the acetabulum into the capsule and periosteum. This cocktail consisted of 123mg of Ropivacaine, 0.25mg of Epinephrine, 0.04mg of Clonidine, and 15mg of Ketorolac, diluted to 50cc. Traction was released from the femur. The leg was rotated to 120 degrees. Any remaining medial capsule was released until the lesser trochanter was easily palpable. A Sanchez retractor was placed medially. The lateral capsule was further released into the shoulder to allow access to the greater trochanter. A Sanchez retractor was placed over the greater trochanter which allowed the trochanter to flip in front of the capsule for excellent exposure. The leg was brought down into maximal extension and 20 degrees of adduction while ensuring there was no impingement on the acetabulum. Any remnant capsule within the trochanter was released. Piriformis and obturator externis were identified and protected. There was excellent access to the proximal femur. The lateral neck remnant was removed with a rongeur. A blunt canal probe was used to identify the canal and trajectory for later broaching. A box osteotome initiated the broach course. A small curved rasp and a curved curette were used to work laterally. Broaching then began with a size 8 Corail broach. This was inserted manually around the trochanter and into the canal before mallet blows. The broach was seated to a few millimeters below the cut level based on the neck cut and the preoperative template. Sequential broaching was continued with the Monsciergecise pneumatic broaching device until a tight fit was obtained with good rotational control of the femur. A trial standard short neck was inserted along with a +5 trial head. The leg was brought out of extension and adduction and then reduced with traction and internal rotation. The leg was stable anteriorly in a position of 30 degrees of extension and 90 degrees of external rotation. Fluoroscopy was used to ensure there was no fracture and the stem was seated well. Leg lengths were checked with an AP pelvis and pelvic reference points. [employer] navigation system was used to confirm appropriate positioning and leg length and offset. Once content with the desired offset and leg lengths, the leg was brought back into extension, external rotation and adduction. The periosteum and surrounding tissue was injected with remaining portion of the wilian-articular cocktail. The proximal femur was irrigated as well as the deep tissues. The Wool and the G[place] Corail standard short neck collared stem, size 12, was then manually inserted into the proximal femur making sure to control rotation. It was then malleted into position with light blows, giving breaks to allow bone expansion and decrease risk of fracture. The selected Depuy Altrx Ceramic Head, size 36+8.5mm, was then placed onto the clean and dry trunnion and secured with impaction onto the tapered fit. The leg was brought back out of extension and adduction and reduced with traction and internal rotation. Stability was confirmed with no shuck at 90 degrees of external rotation and 30 degrees of extension. No impingement through range of motion arc. Final x-ray images were obtained with fluoroscopy to confirm adequate positioning and no intraoperative fracture. The deep tissues were thoroughly irrigated with Irrisept chlorhexadine solution. The second dose of TXA 1g was administered intravenously.The capsule was then reapproximated with the previously placed Ethibond sutures. The TFL fascia was finally closed with a No. 2 Stratafix, barbed suture. Deep tissues were then reapproximated with 0 Vicryl and a running 2-0 Vicryl. The skin was closed with a running 4-0 Monocryl in a subcuticular fashion. This was reinforced with skin glue. A Mepilex silver dressing was applied. LEFT Side Keeping the back table sterile, the drapes were removed, light handles changed, and fluoroscopy switched rooms sides. Once again, a AP hip was obtained to serve as a reference for determining leg lengths. The left leg was then prepped with Chloraprep and draped in a standard fashion. A second prep with Chloraprep was performed prior to placement of a shower-curtain type drape with Iodine impregnated skin protection. A timeout was once again performed to ensure that there were no issues to proceed. An obliquely oriented incision was made starting lateral to the ASIS and running distal over the Tensor Fascia Tamara (TFL) muscle belly toward the fibular head, approximately 10cm. The skin and soft tissue was dissected sharply, through Shaheen?s fascia, and to the fascia of the TFL. With the fascia and superior border of the IT band identified, the fascia was incised with a new knife just above any perforators from the IT band. The TFL muscle belly was bluntly dissected away from the fascia and moved laterally. The fat between TFL and rectus was identified to ensure the dissection was not within the TFL. Blunt dissection created space between abductors and the capsule and retractor was placed over the lateral femoral neck. The fibers of the rectus femoris tendon were identified and these were freed from the anterior capsule. A second cobra retractor was placed around the medial femoral neck. The TFL was further retracted laterally to show the deep fascia. Careful dissection through this layer identified three main crossing vessels of the lateral femoral circumflex. These were cauterized in multiple locations and then cut without any noticeable bleeding. The TFL was further released bluntly from the deep fascia to expose anterior hip capsule and fat The Kahlil orthopaedic retractor was then placed beneath the TFL and against sartorius and medial soft tissues to protect and retract the soft tissues. A T-capsulotomy was then performed starting at the superior lateral acetabulum and moving distally to the intertrochanteric ridge. These capsular flaps were tagged with a No. 1 Ethibond and elevated from within. The capsular flaps were released to the shoulder of the lateral neck and to the lesser trochanter to give excellent visualization of the proximal femur. A neck osteotomy was performed using an oscillating saw based on preoperative templates. This cut started in the shoulder and of the lateral neck and exited medially. The saw was at all times directed medially to avoid injury to the greater trochanter. Gentle traction was applied to the leg and the osteotomy opened. The femoral head was removed with a corkscrew, making sure to protect the TFL on its exit. This was measured on the back table to determing the starting reamer size. Portions of the rectus obscuring visualization were minimally elevated off the superior acetabulum. An anterior retractor was placed over the anterior wall between capsule and labrum and attached to the Gripper retraction system. A posterior retractor was placed similarly. This provided excellent visualization. The contents of the cotyloid fossa were removed with electrocautery and the labrum was removed with a knife. There was significant chondromalacia of the superior acetabulum. There was also notable synovitis seen throughout the hip as well. Acetabular reaming began with a 48mm reamer. This first reaming was directed anterior to posterior and medial to get down to the true floor. This was inspected and reamed until the true floor was reached. The anterior retractor was then released and entry and exit was provided by traction on the capsular flaps. I then reamed sequentially up to a 54mm reamer where good fit was obtained. The larger reamers were oriented based on anatomical reference of the anterior and lateral kimble to ensure proper abduction and anteversion. Positioning and size was confirmed with the fluoroscopy. A 54mm Depuy [place] acetabular component was selected. The acetabulum was reamed around the periphery with the selected acetabular size to prevent a rim fit. The deep tissues were irrigated. The acetabular component was then impacted in a position of about 40-45 degrees of abduction and 15-20 degrees of anteversion, using the patient?s anatomy as the ultimate landmark. Fluoroscopy was used to confirm this. There was excellent fruit harvester of the acetabular component and the inserting handle was removed. A primary acetabular screw was placed into the ilium by drilling through one of the holes in the acetabular component. This was measured and an approrpriately sized screw was placed with excellent purchase. It was checked not to be proud. The acetabular liner, Depuy [id number] polyethylene liner, was inserted and lined up with the tines of the acetabular component. There was no soft tissue interposition. The liner was then impacted into position and confirmed to be well-seated. A portion of the wilian-articular cocktail was then injected around the acetabulum into the capsule and periosteum. This cocktail consisted of 123mg of Ropivacaine, 0.25mg of Epinephrine, 0.04mg of Clonidine, and 15mg of Ketorolac, diluted to 50cc. Traction was released from the femur. The leg was rotated to 120 degrees. Any remaining medial capsule was released until the lesser trochanter was easily palpable. A Sanchez retractor was placed medially. The lateral capsule was further released into the shoulder to allow access to the greater trochanter. A Sanchez retractor was placed over the greater trochanter which allowed the trochanter to flip in front of the capsule for excellent exposure. The leg was brought down into maximal extension and 20 degrees of adduction while ensuring there was no impingement on the acetabulum. Any remnant capsule within the trochanter was released. Piriformis and obturator externis were identified and protected. There was excellent access to the proximal femur. The lateral neck remnant was removed with a rongeur. A blunt canal probe was used to identify the canal and trajectory for later broaching. A box osteotome initiated the broach course. A small curved rasp and a curved curette were used to work laterally. Broaching then began with a size 8 Corail broach. This was inserted manually around the trochanter and into the canal before mallet blows. The broach was seated to a few millimeters below the cut level based on the neck cut and the preoperative template. Sequential broaching was continued with the Mapidyse pneumatic broaching device until a tight fit was obtained with good rotational control of the femur. A trial short neck was inserted along with a +8.5 trial head. The leg was brought out of extension and adduction and then reduced with traction and internal rotation. The leg was stable anteriorly in a position of 30 degrees of extension and 90 degrees of external rotation. Fluoroscopy was used to ensure there was no fracture and the stem was seated well. Leg lengths were checked with an AP pelvis and pelvic reference points. [employer] navigation system was used to confirm appropriate positioning and leg length and offset. This slightly undercorrected leg length and offset. Once content with the desired offset and leg lengths, the leg was brought back into extension, external rotation and adduction. The periosteum and surrounding tissue was injected with remaining portion of the wilian-articular cocktail. The proximal femur was irrigated as well as the deep tissues. The Depuy Corail standard collared stem, size 12, was then manually inserted into the proximal femur making sure to control rotation. It was then malleted into position with light blows, giving breaks to allow bone expansion and decrease risk of fracture. The selected Depuy Altrx Ceramic Head, size 36+5mm, was then placed onto the clean and dry trunnion and secured with impaction onto the tapered fit. The leg was brought back out of extension and adduction and reduced with traction and internal rotation. Stability was confirmed with no shuck at 90 degrees of external rotation and 30 degrees of extension. No impingement through range of motion arc. Final x-ray images were obtained with fluoroscopy to confirm adequate positioning and no intraoperative fracture. The deep tissues were thoroughly irrigated with Irrisept chlorhexadine solution. The capsule was then reapproximated with the previously placed Ethibond sutures. The TFL fascia was finally closed with a No. 2 Stratafix, barbed suture. Deep tissues were then reapproximated with 0 Vicryl and a running 2-0 Vicryl. The skin was closed with a running 4-0 Monocryl in a subcuticular fashion. This was reinforced with skin glue. A Mepilex silver dressing was applied. At the end of the case, all counts were correct. Adina was transferred to the hospital bed without difficulty and suffering no apparent complication. Adina has a good prognosis. Physical therapy will start today and without restrictions, weight-bearing as tolerated. Aspirin 81mg BID will be used for DVT prophylaxis.
[2022-08-04] MEDS: fentaNYL 100 MCG/2 ML VIAL IVP ×4 (11:01→11:45)
[2022-08-04] MEDS: HYDROmorphone 2 MG/ML SYR IVP ×2 (11:24→11:35)
--- NOTE | 2022-08-04 11:51 | NUR.NOTE ---
Nursing Note: Pt having 9/10 pain in PACU. Pt medicated with fentanyl and dilaudid as ordered. Pt repositioned for comfort. WOOD ROUTER saw pt at bedside and evaluated pain control needs. WOOD ROUTER ordered pt to have 1mg dilaudid at one time at 1124. WOOD ROUTER ordered additional 50mcg fentanyl at 1145. Pt's pain became controlled following 1145 dose of fentanyl and was reported to be 3/10 by pt. Pt VSS.
[2022-08-04] MEDS: Normal Saline Flush 10 ML SYR IV ×2 (14:08→19:05)
[2022-08-04] MEDS: ceFAZolin 1 GM/50 ML BAG IVPB ×2 (15:35→21:21)
--- NOTE | 2022-08-04 16:05 | W.ANESPOSTOP ---
Postoperative Evaluation Date, Time and Location Date Performed: 08/04/22 Time Performed: 16:06 Patient Location: Day Surgery Unit Vital Signs Most Recent Imported Vital Signs: Most Recent Vital Signs Temp Pulse Resp BP Pulse Ox 36 C L 70 16 105/57 L 95 08/04/22 14:17 08/04/22 14:55 08/04/22 14:17 08/04/22 14:55 08/04/22 14:55 Pain Score Most Recent Pain Score: Most Recent Pain Score Pain Level 3 08/04/22 14:55 Assessment Mental Status: Awake (Alert & Oriented to Patient Baseline) Airway and Respiratory Function: Patent airway with normal (patient baseline) respiratory exam Cardiovascular Function: Hemodynamically Unstable (See Explanation) (Patient has failed PT twice due to symptomatic orthostatics. Discussed with Dr. Obando and patient to be admitted for observation overnight. ) and Receiving care as an inpatient Hydration Status: Adequately Hydrated Nausea & Vomiting: No Nausea or Vomiting Pain: Pt. Denies Any Pain Peripheral Nerve Block: Patient did not receive a nerve block Postoperative Comments:: Patient reports dizziness when sitting which worsens with standing. Noted that patient becomes pale and shakey, resolves when supine. Oxygen saturations still intermittently low, especially when resting. Incentive spirometer ordered and education provided. Messaged Dr. Obando to recommend continuous SPO2 monitoring: discussed with nursing.
--- NOTE | 2022-08-04 16:40 | IN_ITS ---
Date of service: 08/04/22 Time of Service: 14:12 PT Notes Visit Reasons: B/L THR Physical Therapy Day Surgery Initial Evaluation Date: 08/04/2022 Referring Doctor: ALMAZ Duffy PT Orders: PT CONSULT: Eval/Treat Precautions: WBAT on B LE with AD. Patient Profile/Admitting Diagnosis: Adina is a 71-year-old female with degenerative joint disease of both hips and is status post bilateral total hip arthroplasties on postoperative day 0. PMHX: Medical History?(Updated 07/22/22 @ 14:22 by Kait Akers) Bursitis of hip, right Nasal polyps Rhinitis due to pollen Vaginal atrophy Vitamin D deficiency Surgical History? Cholecystectomy (~1997) Colonoscopy - IV Sedation (01/20/15) DR.ANNICK CRUZ discectomy (~1987) lumbar Hysterectomy, Laproscopic (~1994) Precancerous Pap Social History/Home Situation: Lives with José Miguel in a private home with 5 steps to enter with rails on both sides. They have another 14 steps to the second floor bedroom of the house. Patient had been cruising on furnitures at home prior to surgery. Equipment Owned/DME: None Subjective: Complained of lightheadedness at rest that is worse in sitting and with standing. Reported 2/10 pain in B hips at rest and with movement. Objective: General Observation: Supine in bed. HOB at about 30 degrees. TEDS to B legs. Mepilex Ag over surgical incision. Mental Status: Alert and Oriented x 4 Pain: 2/10 at rest and with movement ROM: Right Lower Extremity: Hip flexion WFL. Hip abduction WFL. Knee flexion WFL. Ankle dorsiflexion WFL. Ankle plantarflexion WFL. Left Lower Extremity: Hip flexion WFL. Hip abduction WFL. Knee flexion WFL. Ankle dorsiflexion WFL. Ankle plantarflexion WFL. Strength: Right Lower Extremity: Hip flexors 4/5. Hip abductors 4/5. Knee flexors 5/5. Kne e extensors 4/5. Ankle dorsiflexors 5/5. Ankle plantarflexors 5/5. Left Lower Extremity: Hip flexors 4/5. Hip abductors 4/5. Knee flexors 5/5. Knee extensors 4/5. Ankle dorsiflexors 5/5. Ankle plantarflexors 5/5. Sensation: Intact as to pain and light touch in B LE Bed Mobility/Transfers: Supine to sit minimal assist of 2 Sit to supine minimal assist of 2 Sit to stand minimal assist of 2 Stand to sit minimal assist of 2 Bed to chair deferred Gait: Deferred due to orthostatic hypotension Balance: Static Sitting: Fair Dynamic Sitting: Poor Static Standing: Unable to test Dynamic Standing: Unable to test Special Tests: Mobility Limitations Standardized Measure [facility] AM-PAC 6 clicks Basic Mobility Inpatient Short Form: Raw Score: 12 CMS Score: 69% deficit Informed Consent/Education: Patient instructed in purpose of PT consult. THERA EX: Supine gluteal sets x 5 Supine heels slides x 5 Supine ankle pumps x 5 Assessment: Lightheaded after two attempts at evaluation today. Recommended further overnight stay for medical monitoring to Nurse Ирина and JETHRO Quintero due to safety concerns. is in agreement. Will re-assess mobility level first thing tomorrow morning and update orthopedic surgeon of patient status. Patient presents with clinical signs and symptoms consistent with current/admitting diagnoses that have resulted to mobility limitations, gait instability, generalized weakness, and impairment of motor control as demonstrated by the following impairment level findings: 1. Decreased strength to B hip major muscle groups 2. Impaired standing balance 3. Orthostatic hypotension Impairments are contributing to the following functional limitations: 1. Inability to safely ambulate due to persistent lightheadedness 2. Increase completion time for mobility ADL performance 3. Increased fall risk Patient is assessed as a 84361 complexity based on the following: History: 71-year-old female with impairment level findings, functional limitations, and past medical history as indicated above Examination: Demonstrable impairment in strength, balance, and mobility level with underlying impairments and functional limitations as documented above Presentation: Evolving Decision Makin moderate complexity Goals: N/A. PT evaluation and 1-2 treatment sessions only for functional mobility training using recommended AD and for HEP instruction. Plan of Care/Treatment Plan: N/A. PT evaluation and 1-2 treatment session only for functional mobility training using recommended AD and for HEP instruction. DISCHARGE RECOMMENDATIONS: Home when medically cleared by orthopedic surgeon. Recommend outpatient PT services in order to optimize functional mobility outcomes and facilitate return to independent community ambulation without an assistive device. TREATMENT CODE/TIME: 65714 x 20 minutes, 03485 x 29 minutes beginning at 14:12 PM and 15:49 PM. Thank you for the opportunity to participate in the care of this patient. Lina Lee PT, DPT, CLT [facility] [place], [place]
[2022-08-04] MEDS: Aspirin E.C. 81 MG TABEC PO (19:06)
[2022-08-04] MEDS: Atorvastatin 20 MG TAB PO (19:06)
[2022-08-04] MEDS: Celecoxib 200 MG CAP PO (19:06)
[2022-08-05 00:30] VITALS: BP 131/72; PULSE 78; RESP 16; TEMP 36.8; O2SAT 97
[2022-08-05 03:45] VITALS: BP 117/69; PULSE 73; RESP 16; TEMP 36.7; O2SAT 98
[2022-08-05] MEDS: oxyCODONE 5 MG TAB PO (06:17)
[2022-08-05] MEDS: Lactated Ringers 1,000 ML 80 ML IV (06:18)
[2022-08-05] MEDS: ceFAZolin 1 GM/50 ML BAG IVPB (06:18)
[2022-08-05 07:20] VITALS: BP 104/66; PULSE 69; RESP 16; TEMP 36.5; O2SAT 97
--- NOTE | 2022-08-05 07:25 | PDOC.DSDIS_ITS ---
Date of service: 08/04/22 Time of Service: 07:22 Discharge Plan Disposition Patient Disposition: Home Condition: Good Discharge Details Reason For Visit: B/L THR Admit Date/Time: 08/04/22 07:18 Admit Provider: Eliu Obando Attending Provider: Eliu Obando Primary Care Provider: Gwendolyn Diaz Hospital Course Hospital Course: Patient was admitted to the medical/surgical floor following the procedure due to some persistent postural hypotension. The surgery was tolerated well without any notable medical, surgical, or anesthetic complications. Mobilization began postoperatively but was limited initially by the postural hypotension, but his improved. She was voiding spontaneously. Vitals were stable. Physical therapy worked with the patient and was cleared for discharge home. No acute medical issues. Pain was controlled on oral regimen. Home Meds and New Rx's Prescriptions: New celecoxib 200 mg capsule 200 mg PO BID Qty: 60 0RF aspirin 81 mg tablet,delayed release (DR/EC) 81 mg PO BID Qty: 60 0RF acetaminophen 500 mg tablet 1,000 mg PO TID Qty: 90 3RF pantoprazole 40 mg tablet,delayed release (DR/EC) 40 mg PO DAILY Qty: 30 0RF dexamethasone 4 mg tablet 4 mg PO DAILY Qty: 2 0RF oxycodone 5 mg tablet 5 mg PO Q4H MDD 6 tabs PRN (Reason: pain) Qty: 20 0RF Continued Shingrix (PF) 50 mcg/0.5 mL suspension for reconstitution 0.5 ml IM ONCE Qty: 1 1RF Patient Comments: pt did not get Rx Instructions: as a single dose. Repeat in 2 months cholecalciferol (vitamin D3) 1,000 UNIT tablet 2,000 unit PO DAILY atorvastatin 20 mg tablet 20 mg PO QPM Qty: 90 4RF hydrochlorothiazide 12.5 mg tablet 12.5 mg PO QAM Qty: 90 4RF amlodipine 5 mg tablet 5 mg PO DAILY Qty: 90 3RF calcium carbonate 500 mg calcium (1,250 mg) Tablet,Chewable 1,000 mg PO BID Discontinued aspirin [Aspirin Low-Strength] 81 MG tablet,chewable 81 mg PO DAILY naproxen 500 mg Tablet 500 mg Discharge Instructions Additional Instructions: Total Hip Discharge Instructions Activity: The most important activity is to walk. You should try to take short walks a few times a day. You have no restrictions on movement or positioning, but do not try to force what you do. You will find some stiffness and weakness with hip flexion (lifting your knee). Do not try to strengthen this too early, continue to practice walking and stairs and this will come. - Outpatient physical therapy can be helpful to help return you to a normal gait and improve your flexibility and strength. This can start around 2 weeks. For some patients, it?s not necessary. Usually this is determined at the time of discharge or at the first post-operative visit. - You should wear the KANNAN hose on both legs for 2 weeks. Dressing: Keep the surgical dressing in place for at least one week. After the first week it may be removed and replace with light gauze and tape or nothing. It may get wet after 3 days but avoid soaking the dressing. If it gets wet, just lightly pat dry. It is important to always keep some gauze between skin folds, especially when you are sitting. Spend some time with the wound exposed when you are lying flat as the incision does wrinkle onto itself. Medications: - You should take Tylenol and an anti-inflammatory Celebrex as your primary pain control medications. If the Celebrex is too expensive or not covered, please call the office for another alternative (Advil/Ibuprofen or Naproxen/Aleve). - You have been prescribed a stronger pain medication Oxycodone for breakthrough pain, take as needed as prescribed. - You have also been prescribed a stomach acid reduction agent Pantoprozole to help reduce stomach acid and reflux. - You have also been prescribed Decadron to help with post-operative nausea and pain. You will take this for two days starting tomorrow. - You will be taking Aspirin 81mg twice a day for DVT prevention unless instructed otherwise. - If you have constipation you should take Colace or Miralax (both [id number]). It takes most people 3-4 days to have a bowel movement. Follow-up: 2 weeks If you have any acute concerns or questions, please do not hesitate to contact the office at [phone]. You may contact Dr. Obando with any questions after hours through the hospital at [phone] or on his cell phone at [phone]. Stand Alone Forms: Anesthesia Discharge InstTammi, Nati Burnham ([facility]) Referrals: Eliu Obando MD [ [facility] STAFF PHYSICIAN] - Equipment/Supplies: Walker Activity:: Activity as Tolerated Shower/Bathe:: 72 hours Activity:: Activity as Tolerated Equipment/Supplies:: Walker Diet:: As Tolerated
[2022-08-05] MEDS: Pantoprazole 40 MG TABCR PO (07:42)
[2022-08-05] MEDS: Celecoxib 200 MG CAP PO (07:42)
[2022-08-05] MEDS: Acetaminophen 500 MG TAB 1000 MG PO (07:42)
[2022-08-05] MEDS: Aspirin E.C. 81 MG TABEC PO (07:43)
[2022-08-05] MEDS: hydroCHLOROthiazide 12.5 MG TAB PO (07:50)
[2022-08-05] MEDS: Dexamethasone 4 MG TAB PO (07:51)
[2022-08-05] MEDS: Cholecalciferol (Vitamin D3) 1,000 UNIT TAB 2000 UNITS PO (07:51)
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
--- NOTE | 2022-08-05 09:41 | INDS_ITS ---
Date of service: 08/05/22 Time of Service: 08:38 PT Notes Visit Reasons: B/L THR Physical Therapy Day Surgery Initial Evaluation Date: 08/05/2022 Referring Doctor: ALMAZ Duffy PT Orders: PT CONSULT: Eval/Treat Precautions: WBAT on B LE with AD. Patient Profile/Admitting Diagnosis: Adina is a 71-year-old female with degenerative joint disease of both hips and is status post bilateral total hip arthroplasties on postoperative day 1. PMHX: Medical History?(Updated 07/22/22 @ 14:22 by Kait Akers) Bursitis of hip, right Nasal polyps Rhinitis due to pollen Vaginal atrophy Vitamin D deficiency Surgical History? Cholecystectomy (~1997) Colonoscopy - IV Sedation (01/20/15) DR.ANNICK CRUZ discectomy (~1987) lumbar Hysterectomy, Laproscopic (~1994) Precancerous Pap Social History/Home Situation: Lives with José Miguel in a private home with 5 steps to enter with rails on both sides.? They have another 14 steps to the second floor bedroom of the house.? Patient had been cruising on furnitures at home prior to surgery.? Equipment Owned/DME: None Subjective: Less symptomatic this morning. Not as nauseous and lightheaded as she was yesterday just standing up from edge of bed. Able to tolerate walking of up to 20-25 feet before becoming too symptomatic. Objective: General Observation: Supine in bed.? HOB at about 30 degrees.? TEDS to B legs.? Mepilex Ag over surgical incision. Mental Status: Alert and Oriented x 4 Pain: 2/10 at rest and with movement Vital signs: BP decreases to mid 80s/low 50s mmHg with standing and walking with ambulation but increases back up to low 110s/low 70s mmHg with seated rest. ROM: Right Lower Extremity: Hip flexion WFL. Hip abduction WFL. Knee flexion WFL. Ankle dorsiflexion WFL. Ankle plantarflexion WFL. Left Lower Extremity: Hip flexion WFL. Hip abduction WFL. Knee flexion WFL. Ankle dorsiflexion WFL. Ankle plantarflexion WFL. Strength: Right Lower Extremity: Hip flexors 4/5. Hip abductors 4/5. Knee flexors 5/5. Knee extensors 4/5. Ankle dorsiflexors 5/5. Ankle plantarflexors 5/5. Left Lower Extremity: Hip flexors 4/5. Hip abductors 4/5. Knee flexors 5/5. Knee extensors 4/5. Ankle dorsiflexors 5/5. Ankle plantarflexors 5/5.? Sensation: Intact as to pain and light touch in B LE Bed Mobility/Transfers: Supine to sit stand by assist Sit to supine stand by assist Sit to stand stand by assist Stand to sit stand by assist Bed to chair contact guard assist Gait: 20 steps x 4 using FWW with conatct guard assist and wheelchair follow of [facility] nd José Miguel. Ensured seated rests in between trips to minimize lightheadedness. Step through gait pattern. No LOB. No SOB. Stairs: Up and down 6 x 4-inch steps and 4 x 6-inch steps while holding onto B rails with step-to gait pattern requiring stand by assist. Balance: Static Sitting: Good Dynamic Sitting: Good Static Standing: Fair Dynamic Standing: Fair Special Tests: Mobility Limitations Standardized Measure [facility] 6 clicks Basic Mobility Inpatient Short Form: Raw Score: 18? CMS Score: 47% deficit Informed Consent/Education:? Patient instructed in purpose of PT consult.? THERA EX: Gluteal sets x 5 Heels slides x 5 Ankle pumps x 5 Seated marches x 5 LAQs x 5 Assessment: Remains orthostatic but less symptomatic (less nauseous and less lightheaded. Patient and have been trained with safety techniques for mobility performance including transitioning slowly in between positions, sitting on chair before lightheadedness worsens, doing deep breathing exercises while walking. PT is recommended to ensure follow up with safety and reduce fall risk at home. Patient presents with clinical signs and symptoms consistent with current/admitting diagnoses that have resulted to mobility limitations, gait instability, generalized weakness, and impairment of motor control as demonstrated by the following impairment level findings: 1.? Decreased strength to B hip major muscle groups 2.? Impaired standing balance 3.? Orthostatic hypotension Impairments are contributing to the following functional limitations: 1.? Inability to safely ambulate due to persistent lightheadedness 2.? Increase completion time for mobility ADL performance 3.? Increased fall risk Patient is assessed as a 24914 complexity based on the following: History: 71-year-old female with impairment level findings, functional limitations, and past medical history as indicated above Examination: Demonstrable impairment in strength, balance, and mobility level with underlying impairments and functional limitations as documented above Presentation: Evolving Decision Makin moderate complexity Goals: 1. Patient will negotiate 50 feet using FWW with stand by assist without undue lightheadedness in order to ensure safety of mobility ADL performance. 2. Patient will negotiate 12 x 4-inch steps and 8 x 6-inch steps while holding onto B rails without undue lightheadedness to reduce fall risk. Plan of Care/Treatment Plan: Patient will be seen one more time before today's discharge to work on achieving above goals. DISCHARGE RECOMMENDATIONS: Home when medically cleared by orthopedic surgeon.? Recommend PT to ensure a safe transition to home with FWW. TREATMENT CODE/TIME: 77104 x 20 minutes, 26043 x 27 minutes beginning at 8:38 AM. Thank you for the opportunity to participate in the care of this patient. Lina Lee PT, DPT, CLT [facility] [place], [place]
--- NOTE | 2022-08-05 10:57 | NUR.NOTE ---
Nursing Note: provided pt with d/c instructions and paperwork. pt was educated on s/s infection, movement, rest, pain mngt, oxycodone knowledge and how it can be habit forming and need to take other medications prior. pt educated on moving slowly. assessing hr and bp. using supplemental stool softer/increasing fiber to assist with softer stools and decrease strain to prevent any syncopal episodes.
--- NOTE | 2022-08-05 11:26 | IN_ITS ---
Date of service: 08/05/22 Time of Service: 08:38 PT Notes Visit Reasons: B/L THR Physical Therapy Day Surgery Initial Evaluation Date: 08/05/2022 Referring Doctor: ALMAZ Duffy PT Orders: PT CONSULT: Eval/Treat Precautions: WBAT on B LE with AD. Patient Profile/Admitting Diagnosis: Adina is a 71-year-old female with degenerative joint disease of both hips and is status post bilateral total hip arthroplasties on postoperative day 1. PMHX: Medical History?(Updated 07/22/22 @ 14:22 by Kait Akers) Bursitis of hip, right Nasal polyps Rhinitis due to pollen Vaginal atrophy Vitamin D deficiency Surgical History? Cholecystectomy (~1997) Colonoscopy - IV Sedation (01/20/15) DR.ANNICK CRUZ discectomy (~1987) lumbar Hysterectomy, Laproscopic (~1994) Precancerous Pap Social History/Home Situation: Lives with José Miguel in a private home with 5 steps to enter with rails on both sides.? They have another 14 steps to the second floor bedroom of the house.? Patient had been cruising on furnitures at home prior to surgery.? Equipment Owned/DME: None Subjective: Less symptomatic this morning.? Not as nauseous and lightheaded as she was yesterday just standing up from edge of bed.? Able to tolerate walking of up to 20-25 feet before becoming too symptomatic.? Objective: General Observation: Supine in bed.? HOB at about 30 degrees.? TEDS to B legs.? Mepilex Ag over surgical incision. Mental Status: Alert and Oriented x 4 Pain: 2/10 at rest and with movement Vital signs:? BP decreases to mid 80s/low 50s mmHg with standing and walking with ambulation but increases back up to low 110s/low 70s mmHg with seated rest.? ROM: Right Lower Extremity: Hip flexion WFL. Hip abduction WFL. Knee flexion WFL. An kle dorsiflexion WFL. Ankle plantarflexion WFL. Left Lower Extremity: Hip flexion WFL. Hip abduction WFL. Knee flexion WFL. Ankle dorsiflexion WFL. Ankle plantarflexion WFL. Strength: Right Lower Extremity: Hip flexors 4/5. Hip abductors 4/5. Knee flexors 5/5. Knee extensors 4/5. Ankle dorsiflexors 5/5. Ankle plantarflexors 5/5. Left Lower Extremity: Hip flexors 4/5. Hip abductors 4/5. Knee flexors 5/5. Knee extensors 4/5. Ankle dorsiflexors 5/5. Ankle plantarflexors 5/5.? Sensation: Intact as to pain and light touch in B LE Bed Mobility/Transfers: Supine to sit stand by assist Sit to supine stand by assist Sit to stand stand by assist Stand to sit stand by assist Bed to chair contact guard assist Gait: 20 steps x 4 using FWW with conatct guard assist and wheelchair follow of José Miguel.? Ensured seated rests in between trips to minimize lightheadedness.? Step through gait pattern.? No LOB.? No SOB. Stairs: Up and down 6 x 4-inch steps and 4 x 6-inch steps while holding onto B rails with step-to gait pattern requiring stand by assist.? Balance: Static Sitting: Good Dynamic Sitting: Good Static Standing: Fair Dynamic Standing: Fair Special Tests: Mobility Limitations Standardized Measure [facility] 6 clicks Basic Mobility Inpatient Short Form: Raw Score: 18? CMS Score: 47% deficit Informed Consent/Education:? Patient instructed in purpose of PT consult.? THERA EX: Gluteal sets x 5 Heels slides x 5 Ankle pumps x 5 Seated marches x 5 LAQs x 5 Assessment: Remains orthostatic but less symptomatic (less nauseous and less lightheaded.? Patient and have been trained with safety techniques for mobility performance including transitioning slowly in between positions,? sitting on chair before lightheadedness worsens,? doing deep breathing exercises while walking.? PT is recommended to ensure follow up with safety and reduce fall risk at home. Patient presents with clinical signs and symptoms consistent with current/admitting diagnoses that have resulted to mobility limitations, gait instability, generalized weakness, and impairment of motor control as demonstrated by the following impairment level findings: 1.? Decreased strength to B hip major muscle groups 2.? Impaired standing balance 3.? Orthostatic hypotension Impairments are contributing to the following functional limitations: 1.? Inability to safely ambulate due to persistent lightheadedness 2.? Increase completion time for mobility ADL performance 3.? Increased fall risk Patient is assessed as a 74123 complexity based on the following: History: 71-year-old female with impairment level findings, functional limitations, and past medical history as indicated above Examination: Demonstrable impairment in strength, balance, and mobility level with underlying impairments and functional limitations as documented above Presentation: Evolving Decision Makin moderate complexity Goals: 1.? Patient will negotiate 50 feet using FWW with stand by assist without undue lightheadedness in order to ensure safety of mobility ADL performance. 2.? Patient will negotiate 12 x 4-inch steps and 8 x 6-inch steps while holding onto B rails without undue lightheadedness to reduce fall risk. Plan of Care/Treatment Plan: Patient will be seen one more time before today's discharge to work on achieving above goals. DISCHARGE RECOMMENDATIONS: Home when medically cleared by orthopedic surgeon.? Recommend PT to ensure a safe transition to home with FWW. TREATMENT CODE/TIME: 21746 x 20 minutes, 81177 x 27 minutes beginning at 8:38 AM. Thank you for the opportunity to participate in the care of this patient. Lina Lee PT, DPT, CLT [facility] [place], [place]
== END 2022-08-05 11:05 | disposition home or self-care (01) | DRG 554 ==
LOC: MS 08-05 07:26
PROVIDERS: Admitting Provider Student in an Organized Health Care Education/Training Program; PCP Family Medicine; Visit Provider Student in an Organized Health Care Education/Training Program
PROC: 0SR90JZ Replacement of Right Hip Joint with Synthetic Substitute, Open Approach (ICD-10-PCS; CPT 27130; principal; 2022-08-04 07:30)
DX: M16.0 Bilateral primary osteoarthritis of hip (principal); I47.1 Supraventricular tachycardia; M51.37 Other intervertebral disc degeneration, lumbosacral region; L40.50 Arthropathic psoriasis, unspecified; I10 Essential (primary) hypertension; M54.50 Low back pain, unspecified; E55.9 Vitamin D deficiency, unspecified; Z20.822 Contact with and (suspected) exposure to COVID-19
CPT/HCPCS: 20985; 27130; C1776; 87635; 97162; 97530; 73501; G0378; J0690; J1100; J1170; J2250; J2370; J2405; J3010; J8540

== ENCOUNTER 2022-08-19 10:53 | Outpatient (CLI) | payer MEDICARE, SELFPAY ==
--- NOTE | 2022-08-19 10:15 | DI.RAD_ITS ---
Exam(s) XR HIP PELVIS ADULT BL EXAM: XR HIP PELVIS ADULT BL INDICATION: 1st post op s/p bilat NIDIA. COMPARISON: CR XR PELVIS AP from 07/22/2022 XA XR HIP LT IN OR from 08/04/2022 XA XR HIP RT IN OR from 08/04/2022 TECHNIQUE: 2D digital imaging was performed. Two views. FINDINGS: Bilateral hip prostheses are noted, unchanged in alignment from intraoperative images. No suspicious bony lucencies are seen. DATA REPOSITORY: RADIATION DOSE DELIVERED:
== END 2022-08-19 10:54 | disposition home or self-care (01) ==
LOC: DIORS 10:53
PROVIDERS: PCP Family Medicine; Referring Provider Family Medicine; Visit Provider Physician Assistant
DX: Z96.643 Presence of artificial hip joint, bilateral (principal); Z47.1 Aftercare following joint replacement surgery
CPT/HCPCS: 73521

== ENCOUNTER → 2022-09-17 10:58 | Outpatient (BNVA) | payer MEDICARE, SELFPAY | PROVIDERS: PCP Family Medicine; Referring Provider Family Medicine; Visit Provider Student in an Organized Health Care Education/Training Program | DX: Z47.1 Aftercare following joint replacement surgery (principal); Z96.643 Presence of artificial hip joint, bilateral ==

== ENCOUNTER 2022-10-05 02:17 | Outpatient (CLI) | payer MEDICARE, SELFPAY ==
--- NOTE | 2022-10-05 07:30 | DI.MAMMO_ITS ---
Exam(s) MAMMO SCREENING EXAM: MAMMO SCREENING CLINICAL HISTORY: screening,z12.39. TECHNIQUE: Bilateral full field digital CC and MLO mammographic images were obtained with 3D tomosyn thesis and utilizing computer aided detection (CAD). COMPARISON: Prior mammograms were reviewed. FINDINGS: There has been no significant change in the appearance and distribution of the fibroglandular tissue. No new right breast findings. In the left breast there are 2 findings. Firstly there is a benign-appearing nodule in the upper out er quadrant which is unchanged from prior studies and has appearance of a benign intramammary lymph n ode. Secondly, there is another nodule which is in the retroareolar region. Measures 1.1 by 0.6 cm. Some what increased when compared to 2018 study. No malignant-appearing microcalcification groups in this region or elsewhere in either breast. No new architectural distortion or skin thickening-traction IMPRESSION: 1. No radiographic evidence of malignancy in the right breast. 2. Retroareolar region nodule left breast which has increased in size. Spot compression view and ult rasound recommended BI-RADS Category 0 - Assessment Incomplete: Need additional imaging evaluation Breast Density - Category B - Scattered areas of fibroglandular density Breast density Category C or D implies that the patient has dense breast tissue. Dense breast tissue can make it harder to find cancer on a mammogram. Dense breast tissue is also associated with an incr eased risk of breast cancer. This information about the result of the mammogram report was provided to the patient to raise their awareness. Use this report when you speak with the patient about their risks for breast cancer, which includes their family history. At that time, you may recommend additional screening tests (Ultrasoun d or MRI) as these tests may add significant information. A negative radiographic report should not delay biopsy if a dominant or clinically suspicious mass is present. Up to ten percent of cancers are not identified on mammography. A negative report may reinforce clinical impression. Adenosis and dense breasts may obscure an underlying neoplasm. False positive reports average 6 to 10%. Patient will receive a letter notifying them of these results.
== END 2022-10-05 02:37 ==
LOC: DI 02:17
PROVIDERS: PCP Family Medicine; Visit Provider Family Medicine
DX: Z12.31 Encounter for screening mammogram for malignant neoplasm of breast (principal); N63.11 Unspecified lump in the right breast, upper outer quadrant
CPT/HCPCS: 77063; 77067

== ENCOUNTER 2022-10-11 00:58 | Outpatient (CLI) | payer MEDICARE, SELFPAY ==
--- NOTE | 2022-10-11 | DI.MAMMO_ITS ---
Exam(s) MAMMO SCREEN CALL BACK UNI EXAM: MAMMO SCREEN CALL BACK UNI CLINICAL HISTORY: 2 NODULES LEFT BREAST R92.8 ABNL MAMMO. TECHNIQUE: Craniocaudal and mediolateral oblique Full Field Digital Mammography views of the left br east with Computer Aided Diagnosis. COMPARISON: Comparison is made with prior examinations. FINDINGS: Mammography/Tomosynthesis: Masses/Architectural Distortion: The nodule in the retroareolar region of the left breast is shown to be a skin mole. It is unchanged compared to the prior examination. No suspicious masses or areas o f architectural distortion are present. Microcalcifictions: No suspicious pleomorphic-type are seen. Skin Thickening/Nipple Retraction: None. IMPRESSION: 1. No evidence of malignancy is noted. 2. Unless there is more urgent need, follow-up screening mammography is recommended, as per [place] [employer] guidelines. 3. The findings were discussed with the patient on the date of the examination. BI-RADS Category 1 - Negative Breast Density - Category B - Scattered areas of fibroglandular density Breast density Category C or D implies that the patient has dense breast tissue. Dense breast tissue can make it harder to find cancer on a mammogram. Dense breast tissue is also associated with an incr eased risk of breast cancer. This information about the result of the mammogram report was provided to the patient to raise their awareness. Use this report when you speak with the patient about their risks for breast cancer, which includes their family history. At that time, you may recommend additional screening tests (Ultrasoun d or MRI) as these tests may add significant information. A negative radiographic report should not delay biopsy if a dominant or clinically suspicious mass is present. Up to ten percent of cancers are not identified on mammography. A negative report may reinforce clinical impression. Adenosis and dense breasts may obscure an underlying neoplasm. False positive reports average 6 to 10%. Patient will receive a letter notifying them of these results.
== END 2022-10-11 01:18 ==
LOC: DI 00:58
PROVIDERS: PCP Family Medicine; Visit Provider Family Medicine
DX: R92.8 Other abnormal and inconclusive findings on diagnostic imaging of breast (principal)
CPT/HCPCS: 77063; 77067

== ENCOUNTER → 2022-10-29 10:55 | Outpatient (BNVA) | payer MEDICARE, SELFPAY | PROVIDERS: PCP Family Medicine; Referring Provider Family Medicine; Visit Provider Physician Assistant | DX: Z47.1 Aftercare following joint replacement surgery (principal); Z96.643 Presence of artificial hip joint, bilateral ==

== ENCOUNTER → 2022-11-04 09:58 | Outpatient (BNVA) | payer MEDICARE, SELFPAY | PROVIDERS: PCP Family Medicine; Referring Provider Family Medicine; Visit Provider Physical Therapy Assistant ==

== ENCOUNTER → 2023-02-10 11:43 | Outpatient (BNVA) | payer MEDICARE, SELFPAY | PROVIDERS: PCP Family Medicine; Referring Provider Family Medicine; Visit Provider Surgery | DX: Z12.11 Encounter for screening for malignant neoplasm of colon (principal); D12.6 Benign neoplasm of colon, unspecified | CPT/HCPCS: 99212 ==

== ENCOUNTER 2023-02-25 12:20 | Day surgery (SDC) | payer MEDICARE, SELFPAY ==
--- NOTE | 2023-02-24 20:42 | W.PM.DSUDISC ---
Date of service: 02/25/23 Time of Service: 15:24 Discharge Plan Disposition Patient Disposition: Home Condition: Good Discharge Details Reason For Visit: screening colonoscopy Attending Provider: Tay Dangelo Primary Care Provider: Gwendolyn Diaz Home Meds and New Rx's Prescriptions: Continued Shingrix (PF) 50 mcg/0.5 mL suspension for reconstitution 0.5 ml IM ONCE Qty: 1 1RF Patient Comments: pt did not get Rx Instructions: as a single dose. Repeat in 2 months aspirin [Adult Aspirin Regimen] 81 mg tablet,delayed release (DR/EC) 81 mg PO DAILY cholecalciferol (vitamin D3) 1,000 UNIT tablet 2,000 unit PO DAILY atorvastatin 20 mg tablet 20 mg PO QPM Qty: 90 4RF Discontinued bisacodyl [Dulcolax (bisacodyl)] 5 mg tablet,delayed release (DR/EC) 5 mg PO ONCE Qty: 4 0RF Rx Instructions: Take per colonoscopy instructions provided by ordering providers office polyethylene glycol 3350 17 gram/dose powder 17 g PO ONCE Qty: 238 0RF Rx Instructions: Take per colonoscopy instructions provided by ordering providers office Discharge Instructions Instructions: Diverticulosis (GEN), Colorectal Polyps (GEN), Diverticulosis Diet (GEN) Additional Instructions: Adina, we were able to complete your colonoscopy today without any difficulty. Generally, things look very good. I did see just a few diverticula. These are weak spots in the colon wall that typically accumulate with age. I have attached some basic information here regarding general management of diverticular disease. You have a very few diverticula. I also found 2 polyps. One was quite small, the other was medium sized. I removed both of these polyps completely. One of the polyps did recur in the same spot as a previous polyp removal. The polyps that I removed today will be tested, and once I have the results of that report, I will be in touch. However, given the fact that one of the polyps has recurred in the site of a previous removal, I do think the safest thing to do is to plan for another colonoscopy in 1 year. 1. If tolerated, consume a soft, low fiber diet for 1-2 days. 2[address] Do not drive, drink alcohol, operate machinery, make critical decisions, or do activities that require coordination or balance for 24 hours. 3. Because air was put into your colon during the procedure, expelling air from your rectum (passing gas or farting) is normal. 4. You may not have a bowel movement for 1-3 days because of the colonoscopy prep. This is normal. 5. Go directly to the emergency room if you notice any of the following: Develop chills (warm to touch), or if you have a thermometer and your temperature is above 101 Difficulty breathing or difficultly swallowing Persistent vomiting Severe abdominal pain, other than gas cramps Severe chest pain Black, tarry stools Any bleeding ? exceeding one tablespoon 6. Call your physician if the site where your intravenous was started becomes red, swollen, painful, and warm to touch. 7. Your physician has reviewed your pre-procedure medications. Please continue to take those medications as previously ordered. You will be given specific information/education regarding any changes to your medications before leaving. Activity:: Activity as Tolerated Diet:: As Tolerated Discharge Orders Discharge Orders: Discharge Order (Routine); Ordered 02/24/23 Ordered By: Tay Dangelo DS: Diagnosis Discharge Diagnosis (1) Screen for colon cancer: Status: Acute Asessment and Plan: Follow-up on pathology results
--- NOTE | 2023-02-24 20:44 | COLE_ITS ---
Date of service: 02/25/23 Time of Service: 15:27 Colonoscopy Report Date of procedure: 02/25/23 Pre-op diagnosis general: Screening colonoscopy Post-op diagnosis procedure note: other (Reticulosis, rectal polyps) Procedure: Colonoscopy with polypectomy Surgeon: Tay Dangelo Anesthesia Type: General:No Airway Estimated blood loss (mL): 5 Pathology: other (Rectal polyps x2) Complications: None Disposition: same day Indications: Adina is 72 years old and she has a history of adenomatous polyps. She needs another screening colonoscopy Prep: Miralax/Dulcolax Procedure Start Time: 14:37 Procedure End Time: 14:56 Retraction Time: 14 Findings: There are diverticulosis, rectal polyps x2 Procedure Description: After the induction of monitored anesthetic care, and with the patient in left lateral decubitus position, I began by performing an external anorectal exam.? Perineum and skin were normal, as was the anal verge.? There was no evidence of external hemorrhoids.? Next, I performed a digital rectal exam.? I did not michael reciate any abnormal findings.? Next, I advanced a colonoscope into the rectal vault.? I performed retroflexion.? There was a 0.75 cm sessile polyp in the area of a previous tattoo site. This was retrieved with snare polypectomy. There was minimal bleeding. Using insufflation, I then advanced the colonoscope beyond the rectal folds and into the sigmoid colon before advancing towards the cecum.? The scope was noted to be in the cecum by identification of the ileocecal valve and appendiceal orifice.? I then began withdrawing the colonoscope using repeated irrigation as necessary for full evaluation of the colonic mucosa. Around 35 cm from the anal verge were to areas of previous colonoscopic tattooing. The areas were carefully examined with multiple passes of the colonoscope. I did not see any evidence of any new polyps in this area. there were a few scattered diverticula within the sigmoid colon. Once the scope was withdrawn to the level of the rectum, great care was taken to examine portions of the rectal folds.? Within the midportion of the rectal vault was a 0.25 cm sessile polyp. This was removed with cold forceps. There was minimal bleeding. The quality of the bowel prep with a [employer] prep score was 3, 3, 3 from right to left. finally, the scope was withdrawn and the patient was brought to the same-day surgery recovery unit as the anesthetic wore off. ?The findings and instructions were shared with the patient prior to discharge.
[2023-02-25 12:30] VITALS: BP 169/88; PULSE 74; RESP 17; TEMP 36.6; O2SAT 96
[2023-02-25] MEDS: Lactated Ringers 1,000 ML 80 ML IV (13:00)
[2023-02-25 14:12] VITALS: BMI 31.7
--- NOTE | 2023-02-25 14:12 | W.ANESPRE ---
General Info Date of Service Date Performed: 02/25/23 Height: 5 ft 9 in Weight: 97.5 kg Body Mass Index (BMI): 31.7 Surgical Procedure: Operation Date: 02/25/23 13:35 Proposed Procedure Side Surgeon p Colonoscopy, possible polypectomy Tay Daneglo MD Meds Allergies and Home Medications Allergies Allergy/AdvReac Type Severity Reaction Status Date / Time ethinyl estradiol Allergy Skin Rash Verified 02/25/23 12:39 [From Seasonale contraceptive] levonorgestrel Allergy Skin Rash Verified 02/25/23 12:39 [From Seasonale contraceptive] estrogens, conjugated AdvReac External Verified 02/25/23 12:39 [From Premarin] burning and irrtation Home Medication Medication Instructions Recorded cholecalciferol (vitamin D3) 25 2,000 unit PO DAILY 05/07/13 mcg (1,000 unit) tablet varicella-zoster glycoE [id number] 0.5 ml IM ONCE #1 ea 08/04/21 adj(PF) 50 mcg/0.5 mL IM susp, kit (Shingrix (PF)) aspirin 81 mg tablet,delayed 81 mg PO DAILY 10/29/22 release (Adult Aspirin Regimen) atorvastatin 20 mg tablet 20 mg PO QPM #90 tabs 11/02/22 Current Visit Medications: Current Medications Generic Name Dose Route Start Last Admin Trade Name Freq PRN Reason Stop Dose Admin Hyoscyamine Sulfate 0.125 mg 02/24/23 20:47 Hyoscyamine 0.125 Mg Sl/Oral/Chew SL 03/26/23 20:46 DIRECTED PRN Ringer's Solution 1,000 mls @ 80 mls/hr 02/25/23 06:00 02/25/23 13:00 IV 03/26/23 23:59 80 mls/hr INFUSION ELIZABETH Administration IV Miscellaneous Supplies 1 each 02/25/23 06:00 Iv Access IV 03/26/23 23:59 DIRECTED ELIZABETH Ondansetron HCl 4 mg 02/24/23 20:47 Ondansetron 4 Mg/2 Ml Vial IVP 03/26/23 20:46 Q4H PRN PRN Nausea / Vomiting Sodium Chloride 0 ml 02/25/23 06:00 Normal Saline Flush 10 Ml Syr IV 03/26/23 23:59 PRN PRN Sodium Chloride 0 ml 02/25/23 06:00 Normal Saline 10 Ml Vial IJ 03/26/23 23:59 DIRECTED PRN Sterile Water 0 ml 02/25/23 06:00 Water,Injection,Sterile 10 Ml Vial IJ 03/26/23 23:59 DIRECTED PRN PFSH Active Problems Active Problems: Problem Status Onset Code Screen for colon cancer Z12.11 Adenomatous polyps D36.9 Serrated adenoma of colon D12.6 History of bilateral total hip arthroplasty 08/04/22 Z96.643 DDD (degenerative disc disease), lumbosacral M51.37 Arthralgia M25.50 Sacroiliac dysfunction M53.3 Elevated LFTs R79.89 Hypertension I10 Lower back pain M54.5 Psoriatic arthritis L40.50 Vitamin D deficiency, unspecified 05/06/08 E55.9 Vaginal atrophy 07/01/14 N95.2 Syncope 01/07/15 R55 Right shoulder pain 01/07/15 M25.511 PSVT (paroxysmal supraventricular tachycardia) 03/10/15 I47.1 Concussion with loss of consciousness of 30 minutes or less, sequela 10/26/16 S06.0X1S Cervical pain (neck) 10/26/16 M54.2 Annual physical exam 11/04/16 Z00.00 Allergic rhinitis due to allergen 10/13/15 J30.9 Adenomatous polyp of colon 07/01/14 D12.6 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 Medical History Medical History Bursitis of hip, right Nasal polyps Rhinitis due to pollen Vaginal atrophy Vitamin D deficiency Surgical History Surgical History Cholecystectomy (~1997) Colonoscopy - IV Sedation (01/20/15) DR.ANNICK CRUZ discectomy (~1987) lumbar Hysterectomy, Laproscopic (~1994) Precancerous Pap Tobacco Smoking/Tobacco Use Status: Never Passive smoking exposure: Yes Second hand exposure: Yes Alcohol Alcohol Intake: current Alcohol intake frequency: a few times a week Alcohol type: wine Substance Use Substance use: Never Substance use type: does not use Vital Signs and Lab Results Vital Signs Most Recent Vital Signs in EMR: Most Recent Vital Signs Temp Pulse Resp BP Pulse Ox 36.6 C 74 17 169/88 H 96 02/25/23 12:30 02/25/23 12:30 02/25/23 12:30 02/25/23 12:30 02/25/23 12:30 Lab Results Blood Type / Crossmatch: No Data to Display Complete Blood Count: No Data to Display Complete Metabolic Panel: No Data to Display Liver Function Panel: No Data to Display Coagulation Panel: No Data to Display Cardiac Panel: No Data to Display Arterial Blood Gas: No Data to Display Venous Blood Gas: No Data to Display Pancreas Panel: No Data to Display Thyroid Panel: No Data to Display Infectious Disease: No Data to Display Blood Cultures: No Data to Display Toxicology Panel: No Data to Display Imaging and Studies Imaging and Studies Study information below may be from another EMR and interpreted by another provider. Please see original notes in EMR for more complete details. Stress Test Summary: Date of study: 03/27/2018 *PATIENT PRESENTATION* Height: 177.8cm (70in) Blood Pressure: Weight: 90kg (198lb) BSA: 2.13m^2 Ordering physician: Gwendolyn Diaz Impressions: Normal study after maximal exercise. Summary: 1. Stress ECG conclusions: The stress ECG is negative. Power treadmill score: 6. This score predicts a low risk of cardiac events. 2. Stress: The target heart rate was achieved. The heart rate response to stress is normal. There is a normal resting blood pressure with an appropriate response to stress. The patient experienced no chest pain during stress. Exercise capacity is normal for age. Echocardiogram Summary: Date of Exam: 01/28/15Sex: F : 1950Age: 64 Exam(s) [id number] US:Echocardiogram Heart *[facility]* *[facility]* [address] [place] [address] Date of study: 01/28/2015 Transthoracic Echocardiography M-mode, complete 2D, complete spectral Doppler, and color Doppler *STUDY CONCLUSIONS* Impressions: Normal study. Summary: 1. Left ventricle: The cavity size was normal. There was mild focal basal hypertrophy of the septum. Systolic function was normal. The estimated ejection fraction was 60-65%. Wall motion was normal; there were no regional wall motion abnormalities. 2. Right ventricle: The cavity size was normal. Wall thickness was normal. Systolic function was normal. Anesthesia Assessment and Plan Anesthesia History Personal History: No History of Anesthesia Complications Family History: No Family History of Anesthesia Complications Exercise Tolerance Exercise Tolerance: Metabolic Equivalents>4 Pertinent Negatives Pertinent Negatives: No Symptoms of GERD Cardiac & Pulmonary Exam Cardiac Exam: Normal S1/S2 Heart Sounds Pulmonary Exam: Clear Bilateral Breath Sounds Implantable Cardiac Device Does patient have a Pacemaker or an ICD?: No Airway Exam Known Difficult Airway: No Mallampati Class: 2 Mouth Opening: Normal (> 3cm) Thyromental Distance: Greater than 3 cm Neck Range of Motion: Full ROM Neck Circumference: Normal Teeth Condition: Normal Dentition ASA Classification ASA Score: ASA 2 Emergency Case?: No NPO Status NPO Status: NPO Clears >2 hours, Solids >8 hours Anesthesia Plan Resuscitation Status: Full Code Anesthesia Technique: General Anesthesia Airway Planned: Natural Airway Monitors Used: Standard Monitors
--- NOTE | 2023-02-25 14:54 | BOWEL_PTH ---
PATIENT: Kajal Vázquez LOC: [facility] U#:[id number] AGE/SX: 72/F ROOM: RE02/25/[address]: Tay Dangelo MD : 1950 BED: DIS: 02/25/2023 SPEC #: [id number] RECD: 02/25/23 16:44 STATUS: EMILY REQ #: [id number] CUCO: 02/25/23 14:[address]: Tay Dangelo DEPT: Surgical Specimen RECD BY: Bella Wilkerson ENTERED: 02/25/23 16:44 SP TYPE: Bowel OTHR DR: Gwendolyn Diaz MD, DC Tissues: 1 - BIOPSY BOWEL Procedures: GROSS AND MICRO LEVEL 4 Comments: [id number]
[2023-02-25 15:04] VITALS: BP 90/61; PULSE 55; RESP 18; TEMP 36.5; O2SAT 95
[2023-02-25 15:34] VITALS: BP 120/74; PULSE 62; RESP 18; TEMP 36.6; O2SAT 95
--- NOTE | 2023-02-25 15:52 | W.ANESPOSTOP ---
Postoperative Evaluation Date, Time and Location Date Performed: 02/25/23 Time Performed: 15:04 Patient Location: Day Surgery Unit Vital Signs Most Recent Imported Vital Signs: Most Recent Vital Signs Temp Pulse Resp BP Pulse Ox 36.5 C 55 L 18 90/61 L 95 02/25/23 15:04 02/25/23 15:04 02/25/23 15:04 02/25/23 15:04 02/25/23 15:04 Pain Score Most Recent Pain Score: Most Recent Pain Score Pain Level 0 02/25/23 15:04 Assessment Mental Status: Awake (Alert & Oriented to Patient Baseline) Airway and Respiratory Function: Patent airway with normal (patient baseline) respiratory exam Cardiovascular Function: Hemodynamically Stable Hydration Status: Adequately Hydrated Nausea & Vomiting: No Nausea or Vomiting Pain: Pt. Denies Any Pain Peripheral Nerve Block: Patient did not receive a nerve block
== END 2023-02-25 16:23 | disposition home or self-care (01) ==
LOC: SUR 12:20
PROVIDERS: PCP Family Medicine; Visit Provider Surgery
PROC: 0DJD8ZZ Inspection of Lower Intestinal Tract, Via Natural or Artificial Opening Endoscopic (ICD-10-PCS; CPT 45378; principal; 2023-02-25 13:30)
DX: Z12.11 Encounter for screening for malignant neoplasm of colon (principal); I10 Essential (primary) hypertension; D12.5 Benign neoplasm of sigmoid colon; K57.30 Diverticulosis of large intestine without perforation or abscess without bleeding; D37.4 Neoplasm of uncertain behavior of colon
CPT/HCPCS: 45385; 45380; 88305

== ENCOUNTER 2023-03-14 01:16 | Outpatient (CLI) | payer MEDICARE, SELFPAY ==
[2023-03-14 14:43] LABS: Hemoglobin A1C 5.5 % (<5.7)
[2023-03-14 15:46] LABS: ALT 30 U/L (14-59); AST 25 U/L (15-37); Albumin 3.7 g/dL (3.4-5.0); Alkaline Phosphatase 106 U/L (46-116); Anion Gap 13.3 mmol/L (3-11); BUN 28 mg/dL (7-18); Bilirubin, Total 0.6 mg/dL (0.2-1.0); CO2 23.7 mmol/L (21.0-32.0); CREATININE 1.2 mg/dL (0.55-1.02); Calcium 9.8 mg/dL (8.5-10.1); Calculated LDL 128 mg/dL (<100); Chloride 103 mmol/L (98-107); Cholesterol 239 mg/dL (<200); Glucose 105 mg/dL (74-106); HDL Cholesterol 83 mg/dL (40-60); Potassium 4.3 mmol/L (3.5-5.1); Sodium 140 mmol/L (136-145); Total Protein 7.4 g/dL (6.4-8.2); Triglyceride 141 mg/dL (<150)
== END 2023-03-14 01:17 | disposition home or self-care (01) ==
PROVIDERS: PCP Family Medicine; Visit Provider Family Medicine
DX: I10 Essential (primary) hypertension (principal); R79.89 Other specified abnormal findings of blood chemistry; E11.9 Type 2 diabetes mellitus without complications
CPT/HCPCS: 36415; 80053; 80061; 83036

== ENCOUNTER 2023-08-05 11:20 | Outpatient (CLI) | payer MEDICARE, SELFPAY ==
--- NOTE | 2023-08-05 10:30 | DI.RAD_ITS ---
Exam(s) XR HIP RT AP LAT ONLY EXAM: XR HIP RT AP LAT ONLY CLINICAL HISTORY: annual f/u BILAT THAs. TECHNIQUE: 2D digital imaging was performed. Two images were obtained. AP and lateral views were ob tained. COMPARISON: CR XR HIP PELVIS ADULT BL from 08/19/2022 FINDINGS: BONES: There are stable post operative changes of a right total hip replacement present. No fracture or dislocation. JOINTS: The orthopedic hardware is in good position. No evidence of hardware loosening. SOFT TISSUE: Normal. IMPRESSION: Stable right total hip replacement. DATA REPOSITORY: RADIATION DOSE DELIVERED:
--- NOTE | 2023-08-05 10:30 | DI.RAD_ITS ---
Exam(s) XR HIP LT AP LAT ONLY EXAM: XR HIP LT AP LAT ONLY CLINICAL HISTORY: annual f/u BILAT THAs. TECHNIQUE: 2D digital imaging was performed. Two images were obtained. AP and lateral views were ob tained. COMPARISON: CR XR HIP PELVIS ADULT BL from 08/19/2022 FINDINGS: BONES: There are stable post operative changes of a left total hip replacement present. No fracture or dislocation. JOINTS: The orthopedic hardware is in good position. No evidence of hardware loosening. SOFT TISSUE: Normal. IMPRESSION: Stable left total hip replacement. DATA REPOSITORY: RADIATION DOSE DELIVERED:
== END 2023-08-05 11:21 | disposition home or self-care (01) ==
LOC: DIORS 11:21
PROVIDERS: PCP Family Medicine; Referring Provider Family Medicine; Visit Provider Physician Assistant
DX: Z96.643 Presence of artificial hip joint, bilateral (principal); Z47.1 Aftercare following joint replacement surgery
CPT/HCPCS: 99213; 73502

== ENCOUNTER 2023-10-18 05:07 | Outpatient (CLI) | payer MEDICARE, SELFPAY ==
[2023-10-18 13:21] LABS: ALT 25 U/L (14-59); AST 18 U/L (15-37); Albumin 3.8 g/dL (3.4-5.0); Alkaline Phosphatase 87 U/L (46-116); Anion Gap 11.6 mmol/L (3-11); BUN 25 mg/dL (7-18); Bilirubin, Total 0.6 mg/dL (0.2-1.0); CO2 24.4 mmol/L (21.0-32.0); Calcium 9.4 mg/dL (8.5-10.1); Calculated LDL 101 mg/dL (<100); Chloride 104 mmol/L (98-107); Cholesterol 216 mg/dL (<200); Estimated GFR 59.49 (mL/min/1.73m2); Glucose 114 mg/dL (74-106); HDL Cholesterol 89 mg/dL (40-60); Potassium 4.4 mmol/L (3.5-5.1); Sodium 140 mmol/L (136-145); Total Protein 7.2 g/dL (6.4-8.2); Triglyceride 131 mg/dL (<150)
[2023-10-18 14:24] LABS: Hemoglobin A1C 5.8 % (<5.7)
== END 2023-10-18 05:08 | disposition home or self-care (01) ==
LOC: LBO 05:07
PROVIDERS: PCP Family Medicine; Visit Provider Family Medicine
DX: I10 Essential (primary) hypertension (principal); E11.9 Type 2 diabetes mellitus without complications
CPT/HCPCS: 36415; 80053; 80061; 83036

== ENCOUNTER → 2023-10-19 00:15 | Outpatient (CLI) | payer MEDICARE, SELFPAY ==
--- NOTE | 2023-10-19 11:45 | DI.MAMMO_ITS ---
Exam(s) MAMMO SCREENING EXAM: MAMMO SCREENING CLINICAL HISTORY: screening, Z12.39. TECHNIQUE: Bilateral full field digital CC and MLO mammographic images were obtained with 3D tomosyn thesis and utilizing computer aided detection (CAD). COMPARISON: Prior mammograms were reviewed. FINDINGS: There has been no significant change in the appearance and distribution of the fibroglandular tissue. There are no CAD designations. No new right breast findings Two nodular densities in the left breast appear unchanged from prior mammograms. One is retroareolar and the other is towards the upper outer quadrant has appearance of a probable benign lymph node. There are no malignant-appearing microcalcification groups in either breast. No significant architectural distortion or skin thickening-retraction. IMPRESSION: Stable benign findings. No obvious radiographic evidence of malignancy BI-RADS Category 2 - Benign Findings Density: Breast density Category C or D implies that the patient has dense breast tissue. Dense breast tissue can make it harder to find cancer on a mammogram. Dense breast tissue is also associated with an incr eased risk of breast cancer. This information about the result of the mammogram report was provided to the patient to raise their awareness. Use this report when you speak with the patient about their risks for breast cancer, which includes their family history. At that time, you may recommend additional screening tests (Ultrasoun d or MRI) as these tests may add significant information. A negative radiographic report should not delay biopsy if a dominant or clinically suspicious mass is present. Up to ten percent of cancers are not identified on mammography. A negative report may reinforce clinical impression. Adenosis and dense breasts may obscure an underlying neoplasm. False positive reports average 6 to 10%. Patient will receive a letter notifying them of these results.
== END ==
PROVIDERS: PCP Family Medicine; Visit Provider Family Medicine
DX: Z12.31 Encounter for screening mammogram for malignant neoplasm of breast (principal)
CPT/HCPCS: 77063; 77067

== ENCOUNTER 2024-10-08 04:26 | Outpatient (CLI) | payer MEDICARE, SELFPAY ==
[2024-10-08 12:41] LABS: ALT 37 U/L (14-59); AST 31 U/L (15-37); Albumin 3.6 g/dL (3.4-5.0); Alkaline Phosphatase 96 U/L (46-116); Anion Gap 8.4 mmol/L (3-11); BUN 23 mg/dL (7-18); Bilirubin, Total 0.5 mg/dL (0.2-1.0); CO2 25.6 mmol/L (21.0-32.0); CREATININE 0.9 mg/dL (0.55-1.02); Calcium 9.2 mg/dL (8.5-10.1); Calculated LDL 93 mg/dL (<100); Chloride 104 mmol/L (98-107); Cholesterol 196 mg/dL (<200); Estimated GFR 67.08 (mL/min/1.73m2); Glucose 118 mg/dL (74-106); HDL Cholesterol 75 mg/dL (>or=50); Potassium 4.5 mmol/L (3.5-5.1); Sodium 138 mmol/L (136-145); Total Protein 7.1 g/dL (6.4-8.2); Triglyceride 141 mg/dL (<150)
== END 2024-10-08 04:27 | disposition home or self-care (01) ==
PROVIDERS: PCP Family Medicine; Visit Provider Family Medicine
DX: I10 Essential (primary) hypertension (principal)
CPT/HCPCS: 36415; 80053; 80061

== ENCOUNTER 2024-11-13 01:31 | Outpatient (CLI) | payer MEDICARE, SELFPAY ==
--- NOTE | 2024-11-13 07:45 | DI.MAMMO_ITS ---
Exam(s) MAMMO SCREENING EXAM: MAMMO SCREENING CLINICAL HISTORY: screening,z12.39. TECHNIQUE: Bilateral full field digital CC and MLO mammographic images were obtained with 3D tomosynthesis and utilizing computer aided detection (CAD). COMPARISON: Prior mammograms were reviewed. FINDINGS: There has been no significant change in the appearance and distribution of the fibroglandular tissue. No new right breast findings. The previously described benign-appearing nodular densities in the left breast are again noted and appear stable. There are no new spiculated masses nor new malignant appearing microcalcification groups. There is no significant architectural distortion nor skin thickening-retraction. IMPRESSION: Stable benign-appearing findings. No radiographic evidence of malignancy. BI-RADS Category 2 - Benign Findings Breast Density - Category B - There are scattered areas of fibroglandular density. Breast density Category C or D implies that the patient has dense breast tissue. Dense breast tissue can make it harder to find cancer on a mammogram. Dense breast tissue is also associated with an increased risk of breast cancer. This information about the result of the mammogram report was provided to the patient to raise their awareness. Use this report when you speak with the patient about their risks for breast cancer, which includes their family history. At that time, you may recommend additional screening tests (Ultrasound or MRI) as these tests may add significant information. A negative radiographic report should not delay biopsy if a dominant or clinically suspicious mass is present. Up to ten percent of cancers are not identified on mammography. A negative report may reinforce clinical impression. Adenosis and dense breasts may obscure an underlying neoplasm. False positive reports average 6 to 10%. Patient will receive a letter notifying them of these results.
--- NOTE | 2024-11-13 14:29 | DI.DEXA_ITS ---
Exam(s) XR DEXA BONE DENSITY W/WO GERRI EXAM: XR DEXA BONE DENSITY W/WO GERRI CLINICAL HISTORY: post menopausal status,z78.0 TECHNIQUE: [employer] Horizon C densitometer analysis of the lumbar spine and left forearm. Lateral survey image of the thoracic and lumbar spine. The bone mineral density measurements of the hips were not performed due to bilateral hip prostheses. COMPARISON: CR XR DEXA BONE DENSITY W/WO GERRI from 09/04/2021 FINDINGS: Lateral view of the thoracic and lumbar spine shows no evidence of compression fractures. Bone mineral density measurements of the lumbar spine correspond to a total T- score of 0.2, in the normal range. This represents a 4 percent decrease from 202. Theleft forearm bone mineral density measurements correspond to a T-score of the distal 3rd of -1.1, in the mildly osteopenic range. This is not significantly changed from prior exam. IMPRESSION: Normal bone density of the spine. Mild osteopenia of the forearm.
== END 2024-11-13 01:51 ==
LOC: DI 01:31
PROVIDERS: PCP Family Medicine; Visit Provider Family Medicine
DX: Z12.31 Encounter for screening mammogram for malignant neoplasm of breast (principal); Z78.0 Asymptomatic menopausal state; M81.0 Age-related osteoporosis without current pathological fracture
CPT/HCPCS: 77063; 77067; 77080